=== PATIENT | male | born 1970 | race Caucasian/White ===

== ENCOUNTER 2018-04-22 07:28 | Inpatient (IN) | END 2018-04-23 13:29 | disposition home or self-care (01) | DRG 419 ==

== ENCOUNTER 2018-11-11 15:14 | Emergency (ER) | payer OTHER ==
[~2018-11-11] VITALS: Ht 167.6 cm; Wt 71.7 kg
[~2018-11-11 15:14] MED LIST: CLON0.5T14 PO; GLYC30DR OP; HYDR-3980 PO; HYDR-4011 PO; OLAN5TAB5 PO; PARO-37 PO; RANI150T35 PO; TAMS-14 PO
[2018-11-11 16:00] VITALS: Ht 167.6 cm; Wt 71.7 kg
[2018-11-11] MEDS ORDERED: HYDROCODONE/APAP (5/325) TAB PO STA (17:58)
[2018-11-11] MEDS ORDERED: IBUPROFEN 800 MG TAB PO STA (17:58)
[2018-11-11] MEDS ORDERED: IBUP800T48 PO (18:00)
[2018-11-11] MEDS ORDERED: SULF1TAB31 PO (18:00)
[2018-11-11] MEDS ORDERED: CEPHALEXIN 500 MG CAP PO ONE (18:00)
[2018-11-11] MEDS ORDERED: DIPHTH/TET/ACEL PERTUSS (ADULT) 0.5 ML VIAL IM* ONE (18:00)
[2018-11-11] MEDS ORDERED: TRIMETHOPRIM/SULFAMETHOX (DS) TAB PO ONE (18:00)
[2018-11-11] MEDS ORDERED: CEPH-443 PO (18:00)
[2018-11-11] MEDS ORDERED: ACET500C5 PO (18:01)
--- NOTE | 2018-11-11 18:28 | ERD ---
ER Documentation Chief Complaint Chief Complaint Complains of finger pain x 3 days HPI This is a 48-year-old male with a history of IV drug abuse of methamphetamine and presents ED with multiple complaints. Patient's first complaint is right shoulder pain that has been chronic since 2006. Patient had a right shoulder surgery in 2006. Patient states that the pain worsened 4 months ago. Denies any recent fall or injury to account for pain. Patient admits to some painful range of motion. Denies decreased range of motion, tingling, numbness, lack sensation, fever, chills. Last used methamphetamine via IV route 2 weeks ago. Patient is also complaining of pain redness and swelling and purulent drainage along the dorsal left second finger for the past 3 days. Patient states that he used a dirty razor blade to cut open the wound and purulent drainage was expressed. Denies tingling, numbness, lack sensation of the left finger ROS All systems reviewed and are negative except as per history of present illness. Medications Home Meds Active Scripts Acetaminophen* (Tylophen*) 500 Mg Capsule, 2 CAP PO Q8H PRN for PAIN AND OR ELEVATED TEMP, #20 CAP Prov:LEWIS LOPEZ PA-C 11/11/18 Ibuprofen* (Motrin*) 800 Mg Tab, 800 MG PO Q6, #30 TAB Prov:LEWIS LOPEZ PA-C 11/11/18 Cephalexin* (Keflex*) 500 Mg Capsule, 500 MG PO QID for 10 Days, CAP Prov:LEWIS LOPEZ PA-C 11/11/18 Sulfamethoxazole/Trimethoprim* (Bactrim Ds* Tablet) 1 Each Tablet, 1 TAB PO BID, #14 TAB Prov:LEWIS LOPEZ PA-C 11/11/18 Glycerin/Propylene Glycol (Moisture Eyes Drops) 30 Ml Drops, 2 DRP OP QID for 3 Days, #1 BOTTLE Prov:BRYAN,JENNIFER 07/04/18 Ranitidine Hcl* (Zantac*) 150 Mg Tablet, 150 MG PO BID PRN for EPIGASTRIC PAIN, #30 TAB Prov:RAYRAY CASSIDYSTPRICILAS AKhushboo DO 06/08/18 Hydrocodone/Acetaminophen ([place] 10-325 Tablet) 1 Each Tablet, 1 TAB PO Q6H PRN for PAIN, #20 TAB Prov:RAYRAY CASSIDYCHEL Mcdonough DO 06/08/18 Tamsulosin Hcl* (Flomax*) 0.4 Mg Cap.er.24h, 0.4 MG PO BID, #30 CAP Prov:RAE ONEILL PA-C 06/05/18 Hydrocodone/Acetaminophen ([place] 5-325 Tablet) 1 Each Tablet, 1 TAB PO Q6H PRN for PAIN, #7 TAB Prov:RAE ONEILL PA-C 06/05/18 Clonazepam* (Clonazepam*) 0.5 Mg Tablet, 0.5 MG PO Q8, #30 TAB Prov:JUDITH KENDALL NP 05/23/18 Olanzapine* (Zyprexa*) 5 Mg Tablet, 10 MG PO HS for 30 Days, TAB Prov:JUDITH KENDALL NP 05/23/18 Paroxetine Hcl* (Paroxetine*) 20 Mg Tablet, 20 MG PO HS, #30 TAB Prov:JUDITH KENDALL NP 05/23/18 Allergies Allergies: Coded Allergies: No Known Allergies (Unverified Allergy, Unknown, 05/18/18) PMhx/Soc History of Surgery: Yes (left eye, right shoulder) Anesthesia Reaction: No Hx Neurological Disorder: No Hx Respiratory Disorders: No Hx Cardiac Disorders: No Hx Psychiatric Problems: Yes (Bipolar, Schizophrenia) Hx Miscellaneous Medical Probl: Yes (Hep C) Hx Alcohol Use: Yes (quit last 2011) Hx Substance Use: Yes (Marijuana) Hx Tobacco Use: Yes Smoking Status: Never smoker FmHx Family History: No diabetes Physical Exam Vitals Vital Signs Date Temp Pulse Resp B/P (MAP) Pulse Ox O2 O2 Flow FiO2 Time Delivery Rate 11/11/18 98.4 95 20 141/97 97 16:00 (112) Physical Exam Physical Exam Vitals signs: Reviewed by me. General: Well developed, well nourished, in no acute distress. Patient is awake and alert. Head: Normocephalic, atraumatic. Eyes: Normal conjunctiva, Pupils PERRLA, EOM intact grossly ENT: Pharynx is clear, Moist mucous membranes, external ears, nose and mouth normal Neck: Supple, no masses, lymphadenopathy or JVD Respiratory: Clear to auscultation bilaterally with no wheezing, rhonchi, rales, no distress Cardiovascular: RRR, no murmurs, rubs, or gallops MSK: No edema, no unilateral swelling, 5/5 strength Upper Extremity -right Skin: No laceration, or evidence of external trauma Compartments: Soft Motor: Full active range of motion shoulder/elbow/wrist/hand Sensation: Intact shoulder/pinky/middle finger/thumb web space Bones: Mild tenderness palpation along right anterior shoulder, nontender humerus/elbow/forearm/wrist/hand Snuffbox: Nontender Joints: No effusion Pulses/Perfusion: 2+ radial, Capillary refill < 2 seconds Upper Extremity - b left Skin: There is swelling, redness and purulent drainage expressed from wound on patient's dorsal second finger, Compartments: Soft Motor: Full active range of motion shoulder/elbow/wrist/hand Sensation: Intact shoulder/pinky/middle finger/thumb web space Bones: Nontender humerus/elbow/forearm/wrist/hand Snuffbox: Nontender Joints: No effusion Pulses/Perfusion: 2+ radial, Capillary refill < 2 seconds Radial ulnar median nerve tested for sensory and motor function with no deficit Neurologic: Alert and oriented, moving all extremities, normal speech, no focal weakness, no cerebellar signs. Normal mentation Skin: warm and dry, No rash Psych: Normal mood Results 24 hrs Current Medications Medications Dose Sig/Stefan Start Time Status Last (Trade) Ordered Route PRN Stop Time Admin Dose Reason Admin Diphtheria/ 0.5 ml ONCE ONCE 11/11/18 DC Tetanus/Acell IM* 18:00 Pertussis 11/11/18 18:01 (Adacel) Ibuprofen 800 mg ONCE STAT 11/11/18 DC (Motrin) PO 17:58 11/11/18 17:59 1 tab ONCE STAT 11/11/18 DC Acetaminophen PO 17:58 / 11/11/18 17:59 Hydrocodone Bitart ([place] (5/325)) 1 tab ONCE ONCE 11/11/18 DC Trimethoprim/ PO 18:00 11/11/18 18:01 Sulfamethoxaz ole (Bactrim (Ds)) Cephalexin 500 mg ONCE ONCE 11/11/18 DC (Keflex) PO 18:00 11/11/18 18:01 Procedures/MDM ER COURSE: The patient was given Keflex, Bactrim, ibuprofen and [place] and tetanus The medication was well tolerated and the patient reports improvement in symptoms. The patient was stable throughout ED course. I kept the patient and/or family informed of laboratory and diagnostic imaging results throughout the emergency room course. The patient was promptly evaluated and a treatment plan was devised based on H&P and other data. This plan was discussed with the patient who agreed and had no further questions or concerns prior to discharge. MEDICAL DECISION MAKING: This is a 48-year-old male with a history of IV drug abuse, hep C, bipolar disorder and schizophrenia presents ED with complaints of chronic right shoulder pain and abscess to left dorsal digit that is been present for the past 3 days. Per patient's kanika REPORT patient has had 12 visits to the emergency department in the past 8 months. Patient Trina lanced the abscess on his left second finger yesterday. Wound care was provided in the emergency department and he was advised to follow-up in 2 days for wound check. Patient was also advised to apply warm compress multiple times throughout the day. Patient was advised to not use drugs. There is no lymphatic streaking. Low suspicion for sepsis, deep space infection, compartment syndrome, cellulitis, neurovascular injury, tendon injury. As for patient's right chronic shoulder pain -history and physical examination other data not consistent with emergent processes including but not limited to fracture, dislocation, tendon rupture, ischemia, neurovascular in jury, compartment syndrome, septic joint, avascular necrosis, osteomyelitis, necrotizing fasciitis, septic joint, septic arthritis, or other emergent conditions. Patient's vitals are stable and pt can be managed with close outpatient follow-up. Advised patient follow-up with primary care in the next 48 hours for wound check. Advised to return to ED with any worsening symptoms. DISPOSITION PLAN: We discussed follow up with the patient's primary care doctor within 24 to 48 hours. Patient counseled regarding my diagnostic impression and care plan. Prior to discharge all questions answered. Pt agrees with treatment plan and understands strict return precautions. Precautionary instructions provided including instructions to return to the ER if not improving or for any worsening or changing symptoms or concerns. SPECIALIST FOLLOW UP RECOMMENDED: None Patient has been advised to follow up with primary care in 1-2 days. Disclaimer: Inadvertent spelling and grammatical errors are likely due to EHR/dictation software use and do not reflect on the overall quality of patient care. Also, please note that the electronic time recorded on this note does not necessarily reflect the actual time of the patient encounter. Blood Pressure Assessment: Patient's blood pressure was elevated (>120/80) but appears stable without evidence of hypertension emergency or urgency. The patient was counseled about the risks of hypertension and urged to pursue outpatient monitoring and therapy within a week with their primary care physic gabriele. Departure Diagnosis: Primary Impression: Left shoulder pain Chronicity: chronic Qualified Codes: M25.512 - Pain in left shoulder; G89.29 - Other chronic pain Additional Impression: Abscess of finger, left Condition: Stable Patient Instructions: Abscess Drainage, Abscess, Antiobiotic Treatment Only, Shoulder Pain (Uncertain Cause) Referrals: [facility] YOU HAVE RECEIVED A MEDICAL SCREENING EXAM AND THE RESULTS INDICATE THAT YOU DO NOT HAVE A CONDITION THAT REQUIRES URGENT TREATMENT IN THE EMERGENCY DEPARTMENT. FURTHER EVALUATION AND TREATMENT OF YOUR CONDITION CAN WAIT UNTIL YOU ARE SEEN IN YOUR DOCTORS OFFICE WITHIN THE NEXT 1-2 DAYS. IT IS YOUR RESPONSIBILITY TO MAKE AN APPOINTMENT FOR FOLOW-UP CARE. IF YOU HAVE A PRIMARY DOCTOR --you should call your primary doctor and schedule an appointment IF YOU DO NOT HAVE A PRIMARY DOCTOR YOU CAN CALL OUR PHYSICIAN REFERRAL HOTLINE AT IF YOU CAN NOT AFFORD TO SEE A PHYSICIAN YOU CAN CHOSE FROM THE FOLLOWING [facility] [address] [facility]. [facility] [address] [facility] [facility] [address] [facility] [facility] [address] [facility]. [facility] [address] [facility]. [facility]. [address] Additional Instructions: Return in 2 days for a wound check. Apply warm compress to finger multiple times throughout the day. Patient advised to return to the ED immediately for new or worsening symptoms. Patient advised to follow up with primary care provider in the next 24-48 hours. Patient verbalized understanding and agrees with treatment plan and course of action. If patient has no primary care they may follow up with one of the [facility] listed on the following page or one of the options listed below [facility] + [address] [address] or [facility] [address] [place] [address] or [facility] [address] [place] [address] LEWIS LOPEZ PA-C Nov 11, 2018 18:28
[2018-11-11 19:01] VITALS: BP 139/90; PULSE 78; RESP 16
== END 2018-11-11 19:02 | disposition home or self-care (01) ==
LOC: FTE 15:14
DX: M25.512 Pain in left shoulder (principal); L02.512 Cutaneous abscess of left hand; Z87.891 Personal history of nicotine dependence
CPT/HCPCS: 90471; 90715; Z7502; Z7610

== ENCOUNTER 2018-11-20 23:27 | Emergency (ER) | payer SELFPAY ==
[~2018-11-20] VITALS: Ht 172.7 cm; Wt 72.8 kg
[~2018-11-20 23:27] MED LIST changes: +ACET500C5 PO; +CEPH-443 PO; +IBUP800T48 PO; +SULF1TAB31 PO
[2018-11-20 23:54] VITALS: BP 115/68; PULSE 90; RESP 16; Ht 172.7 cm; Wt 72.8 kg
== END 2018-11-21 06:48 | disposition left against medical advice (07) ==
LOC: FTE 23:27
DX: Z53.21 Procedure and treatment not carried out due to patient leaving prior to being seen by health care provider (principal)

== ENCOUNTER 2019-01-30 09:39 | Inpatient (IN) | payer OTHER ==
[~2019-01-30] VITALS: Ht 172.7 cm; Wt 72.7 kg
[2019-01-30] MEDS ORDERED: ONDANSETRON INJ 8 MG in DEXTROSE 5% 50 ML IV STA (12:18)
[2019-01-30] MEDS ORDERED: morphine 4 MG/ML VIAL IV STA (12:18)
[2019-01-30] MEDS ORDERED: SOD CHLORIDE 0.9% 1,000 ML IV STA (12:18)
--- NOTE | 2019-01-30 12:50 | ERD ---
ER Documentation Chief Complaint Chief Complaint LLQ ABD PAIN X1 DAY, NO N/V HPI 48-year-old male with prior history of cholecystectomy presents to the emergency room with 1 day of left lower quadrant abdominal pain that is described as cramping with associated nausea but no vomiting. The symptoms are moderate. No bowel movement for several days. He denies any fevers but does note some chills. No recent travel, sick contacts, antibiotics. He denies any scrotal pain or testicular pain. ROS All systems reviewed and are negative except as per history of present illness. Medications Home Meds Active Scripts Acetaminophen* (Tylophen*) 500 Mg Capsule, 2 CAP PO Q8H PRN for PAIN AND OR ELEVATED TEMP, #20 CAP Prov:LEWIS LOPEZ PA-C 11/11/18 Ibuprofen* (Motrin*) 800 Mg Tab, 800 MG PO Q6, #30 TAB Prov:LEWIS LOPEZ PA-C 11/11/18 Reported Medications Paroxetine Hcl* (Paxil*) 20 Mg Tablet, 20 MG PO HS, TAB 01/30/19 Olanzapine (Zyprexa Zydis) 20 Mg Tab.rapdis, 20 MG PO QHS 01/30/19 Discontinued Scripts Cephalexin* (Keflex*) 500 Mg Capsule, 500 MG PO QID for 10 Days, CAP Prov:LEWIS LOPEZ PA-C 11/11/18 Sulfamethoxazole/Trimethoprim* (Bactrim Ds* Tablet) 1 Each Tablet, 1 TAB PO BID, #14 TAB Prov:LEWIS LOPEZ PA-C 11/11/18 Glycerin/Propylene Glycol (Moisture Eyes Drops) 30 Ml Drops, 2 DRP OP QID for 3 Days, #1 BOTTLE Prov:BRYANJENNIFER 07/04/18 Ranitidine Hcl* (Zantac*) 150 Mg Tablet, 150 MG PO BID PRN for EPIGASTRIC PAIN, #30 TAB Prov:RAYRAY CASSIDYSTPRICILAS A. DO 06/08/18 Hydrocodone/Acetaminophen ([place] 10-325 Tablet) 1 Each Tablet, 1 TAB PO Q6H PRN for PAIN, #20 TAB Prov:LEKKOS,APOSTOLOS A. DO 06/08/18 Tamsulosin Hcl* (Flomax*) 0.4 Mg Cap.er.24h, 0.4 MG PO BID, #30 CAP Prov:RAE ONEILL PA-C 06/05/18 Hydrocodone/Acetaminophen ([place] 5-325 Tablet) 1 Each Tablet, 1 TAB PO Q6H PRN for PAIN, #7 TAB Prov:RAE ONEILL PA-C 06/05/18 Clonazepam* (Clonazepam*) 0.5 Mg Tablet, 0.5 MG PO Q8, #30 TAB Prov:JUDITH KENDALL NP 05/23/18 Olanzapine* (Zyprexa*) 5 Mg Tablet, 10 MG PO HS for 30 Days, TAB Prov:JUDITH KENDALL NP 05/23/18 Paroxetine Hcl* (Paroxetine*) 20 Mg Tablet, 20 MG PO HS, #30 TAB Prov:JUDITH KENDALL NP 05/23/18 Allergies Allergies: Coded Allergies: No Known Allergies (Unverified Allergy, Unknown, 01/30/19) PMhx/Soc History of Surgery: Yes (left eye, right shoulder) Anesthesia Reaction: No Hx Neurological Disorder: No Hx Respiratory Disorders: No Hx Cardiac Disorders: No Hx Psychiatric Problems: Yes (Bipolar, Schizophrenia) Hx Miscellaneous Medical Probl: Yes (Hep C) Hx Alcohol Use: Yes (quit last 2011) Hx Substance Use: Yes (Marijuana) Hx Tobacco Use: Yes FmHx Family History: No diabetes Physical Exam Vitals Vital Signs Date Temp Pulse Resp B/P (MAP) Pulse Ox O2 O2 Flow FiO2 Time Delivery Rate 01/30/19 99 17 132/80 100 14:12 (97) 01/30/19 98.5 120 17 128/79 99 09:44 (95) Physical Exam General: Well developed, well nourished, no acute distress Head: Normocephalic, atraumatic. Eyes: Pupils equally reactive, EOM intact ENT: Moist mucous membranes Neck: Supple, no lymphadenopathy Respiratory: Lungs clear bilaterally, no distress Cardiovascular: RRR, no murmurs, rubs, or gallops Abdominal: Soft, mild focal tenderness to left lower quadrant without rebound or guarding, no pulsatile mass, no tenderness to McBurney's point, no hernia noted. : Deferred MSK: No edema, no unilateral swelling, 5/5 strength Neurologic: Alert and oriented, moving all extremities, normal speech, no focal weakness, no cerebellar signs Skin: No rash Psych: Normal mood Result Diagram: 01/30/19 1251 01/30/19 1251 Results 24 hrs Laboratory Tests Test 01/30/19 12:51 White Blood Count 16.2 10^3/ul Red Blood Count 4.89 10^6/ul Hemoglobin 14.4 g/dl Hematocrit 42.0 % Mean Corpuscular Volume 85.9 fl Mean Corpuscular Hemoglobin 29.4 pg Mean Corpuscular Hemoglobin Concent 34.3 g/dl Red Cell Distribution Width 13.2 % Platelet Count 207 10^3/UL Mean Platelet Volume 9.3 fl Immature Granulocytes % 0.400 % Neutrophils % 80.0 % Lymphocytes % 7.8 % Monocytes % 10.5 % Eosinophils % 0.9 % Basophils % 0.4 % Nucleated Red Blood Cells % 0.0 /100WBC Immature Granulocytes # 0.070 10^3/ul Neutrophils # 12.9 10^3/ul Lymphocytes # 1.3 10^3/ul Monocytes # 1.7 10^3/ul Eosinophils # 0.2 10^3/ul Basophils # 0.1 10^3/ul Nucleated Red Blood Cells # 0.0 10^3/ul Sodium Level 137 mmol/L Potassium Level 4.1 mmol/L Chloride Level 104 mmol/L Carbon Dioxide Level 23 mmol/L Anion Gap 10 Blood Urea Nitrogen 16 mg/dl Creatinine 0.69 mg/dl Est Glomerular Filtrat Rate mL/min > 60 mL/min Glucose Level 127 mg/dl Calcium Level 9.4 mg/dl Total Bilirubin 0.7 mg/dl Direct Bilirubin 0.00 mg/dl Indirect Bilirubin 0.7 mg/dl Aspartate Amino Transf (AST/SGOT) 13 IU/L Alanine Aminotransferase (ALT/SGPT) 9 IU/L Alkaline Phosphatase 85 IU/L Total Protein 8.0 g/dl Albumin 4.2 g/dl Globulin 3.80 g/dl Albumin/Globulin Ratio 1.10 Lipase 56 U/L Current Medications Medications Dose Sig/Stefan Start Time Status Last (Trade) Ordered Route PRN Stop Time Admin Dose Reason Admin Sodium 1,000 ml @ Q1H STAT 01/30/19 DC 01/30/19 Chloride 1,000 mls/hr IV 12:18 12:50 01/30/19 13:17 Morphine 4 mg ONCE STAT 01/30/19 DC 01/30/19 Sulfate IV 12:18 12:52 (morphine) 5/30/19 12:21 Ondansetron 54 ml @ ONCE STAT 01/30/19 DC 01/30/19 HCl 8 200 mls/hr IV 12:18 12:50 mg/Dextrose 01/30/19 12:34 IV Flush 10 ml STK-MED 01/30/19 DC 01/30/19 (NS 10 ml) ONCE .ROUTE 13:49 14:02 01/30/19 13:50 Sodium 100 ml @ ud STK-MED 01/30/19 DC 01/30/19 Chloride ONCE .ROUTE 13:49 14:02 01/30/19 13:50 Iohexol 150 ml STK-MED 01/30/19 DC 01/30/19 (Omnipaque ONCE .ROUTE 13:49 14:02 300mg/ ml) 01/30/19 13:50 Piperacillin 100 ml @ ONCE ONCE 01/30/19 DC 01/30/19 Sod/ 200 mls/hr IVPB 15:00 15:40 Tazobactam 01/30/19 15:29 Sod Ondansetron 4 mg BRIDGE ORDER 01/30/19 HCl (Zofran PRN IV 16:00 Inj) NAUSEA/VOMITI 01/31/19 15:59 NG 650 mg ER BRIDGE 01/30/19 Acetaminophen PRN PO 16:00 (Tylenol .MILD PAIN 01/31/19 15:59 Tab) 1-3 OR TEMP 1 mg ONCE STAT 01/30/19 DC 01/30/19 Hydromorphone IV 15:47 15:54 HCl 01/30/19 15:48 (Dilaudid) Ondansetron 4 mg ONCE STAT 01/30/19 DC 01/30/19 HCl (Zofran IV 15:47 15:54 Inj) 01/30/19 15:48 Procedures/MDM EKG, MONITORS, & DIAGNOSTIC IMAGING: CT abdomen and pelvis: IMPRESSION: 1. ACUTE DIVERTICULITIS INVOLVING THE MID TO DISTAL SIGMOID COLON. THERE IS PERFORATION, WITH ADJACENT FOCI OF FREE AIR WELL A MODERATE AMOUNT OF FREE AIR, WITHIN THE LEFT LOWER QUADRANT, EXTENDING SUPERIORLY ANTERIOR THE RETROPERITONEUM UP TO THE LEVEL OF THE STOMACH. THERE IS ALSO A 2.9 CM ILL- DEFINED AREA OF FLUID AND AIR MEDIAL TO THE LEFT PSOAS MUSCLE, WORRISOME FOR EARLY DEVELOPING ABSCESS. 2. No evidence of bowel obstruction. Fluid-filled loops of large bowel suggestive of watery diarrhea. The appendix is within normal limits. 3. 1.5 cm right-sided renal cyst. Call report was made with Dr. Olmos @ 2:35 PM on 01/30/19 LAB INTERPRETATION: I reviewed the laboratory testing and it shows Leukocytosis MEDICAL DECISION MAKING: Patient's left lower quadrant pain is a broad differential but does include acute diverticulitis. Given localization CT would be appropriate. Consider bowel obstruction versus constipation. Patient will benefit from symptom control and diagnostic imaging to rule out more serious etiology. Simple constipation could be possible as well. ER COURSE: * Patient given IV fluids and pain control medication * The patient CT is reported to be consistent with perforation. The patient still has only localized peritonitis without evidence of diffuse peritonitis. A phone call was placed immediately to Dr. Tinoco. He has been notified. Initially he had requested CT imaging with IV and rectal contrast but has discontinued that request. He will evaluate the patient for possible operative intervention. Patient was given repeat dose of pain medication. Zosyn was given. * Patient remains hemodynamically stable CONSULTATION: General surgeon: Dr. Tinoco DISPOSITION PLAN: Accepting care team and consultations: I discussed the current laboratory data, diagnostic imaging and emergency care provided. Admitting team: Dr. Gee Admitting team indication: Insurance directed Departure Diagnosis: Primary Impression: Acute diverticulitis Additional Impression: Diverticulitis of colon with perforation Diverticulitis bleeding: without bleeding Qualified Codes: K57.20 - Diverticulitis of large intestine with perforation and abscess without bleeding Condition: Stable FELIX OLMOS MD January 30, 2019 12:50
[2019-01-30] MEDS ORDERED: OLAN20TA5 PO (12:57)
[2019-01-30] MEDS ORDERED: PARO-2 PO (12:58)
[2019-01-30] MEDS ORDERED: SOD CHLORIDE 0.9% 100 ML ONE (13:49)
[2019-01-30] MEDS ORDERED: IOHEXOL 300MG/ML 150 ML BTL ONE (13:49)
[2019-01-30] MEDS ORDERED: PIPER-TAZO 3.375 GM IV (PMX) 100 ML IVPB ONE (15:00)
[2019-01-30] MEDS ORDERED: HYDROmorphONE 1 MG/ML SYG IV STA (15:47)
[2019-01-30] MEDS ORDERED: ONDANSETRON 4 MG INJ IV STA (15:47)
[2019-01-30] MEDS ORDERED: ACETAMINOPHEN 325 MG TAB PO PRN (16:00)
[2019-01-30] MEDS ORDERED: ONDANSETRON 4 MG INJ IV PRN ×2 (16:00→18:30)
--- NOTE | 2019-01-30 18:21 | HP ---
Date/Time of Note Date/Time of Note DATE: 01/30/19 TIME: 18:21 Assessment/Plan VTE Prophylaxis Pharmacological prophylaxis: NA/contraindicated Pharm contraindication: low risk/ambulating, surgical contra Lines/Catheters [facility]from [facility] Saline Lock Assessment/Plan Hospital Course 48-year-old male with comorbidities including hepatitis C, polysubstance abuse, and bipolar disorder who presented to the emergency room with chief complaint of abdominal pain with CT evidence of perforated diverticulitis and underlying sepsis, who will be admitted to inpatient setting for further treatment and evaluation. 1. Sepsis with leukocytosis, and tachycardia present on admission. -Most probably secondary to underlying intra-abdominal process. -Continue IV fluids. -Send pancultures. -Monitor for any early signs of septic shock. 2. Acute diverticulitis with perforation. -Continue n.p.o. -Continue IV fluids. -Start empiric antimicrobials including coverage for anaerobes (carbapenem) and enterococci (vancomycin). -Surgical consult has been obtained. 3. Nicotine use. -Will start the patient on nicotine patch. 4. Bipolar disorder with psychotic component. -Will hold oral antipsychotics until the patient is able to take oral intake. 5. History of methamphetamine abuse. -Obtain urine drug screen. Plan: The patient will be admitted to inpatient medical surgical floor. The patient will be kept n.p.o. except for medications.. The patient will be started on DVT prophylaxis. The patient will remain a full code. Activities will be as tolerated. The rest of the patient's management will be based on the clinical course, inputs from consultants, and the results of diagnostic studies. Based on the patient's clinical presentation, he most probably requires at least 2 midnights' stay for further management and evaluation of his clinical presentation. The patient was seen in collaboration with Dr. Gee. Result Diagram: 01/30/19 1251 01/30/19 1251 Results 24hrs Laboratory Tests Test 01/30/19 12:51 White Blood Count 16.2 #H Red Blood Count 4.89 Hemoglobin 14.4 Hematocrit 42.0 Mean Corpuscular Volume 85.9 Mean Corpuscular Hemoglobin 29.4 Mean Corpuscular Hemoglobin Concent 34.3 Red Cell Distribution Width 13.2 Platelet Count 207 # Mean Platelet Volume 9.3 Immature Granulocytes % 0.400 Neutrophils % 80.0 H Lymphocytes % 7.8 L Monocytes % 10.5 Eosinophils % 0.9 Basophils % 0.4 Nucleated Red Blood Cells % 0.0 Immature Granulocytes # 0.070 H Neutrophils # 12.9 H Lymphocytes # 1.3 Monocytes # 1.7 H Eosinophils # 0.2 Basophils # 0.1 Nucleated Red Blood Cells # 0.0 Sodium Level 137 Potassium Level 4.1 Chloride Level 104 Carbon Dioxide Level 23 Anion Gap 10 Blood Urea Nitrogen 16 Creatinine 0.69 Est Glomerular Filtrat Rate mL/min > 60 Glucose Level 127 Calcium Level 9.4 Total Bilirubin 0.7 Direct Bilirubin 0.00 Indirect Bilirubin 0.7 Aspartate Amino Transf (AST/SGOT) 13 L Alanine Aminotransferase (ALT/SGPT) 9 L Alkaline Phosphatase 85 Total Protein 8.0 Albumin 4.2 Globulin 3.80 H Albumin/Globulin Ratio 1.10 Lipase 56 HPI/ROS Admit Date/Time Admit Date/Time Hx of Present Illness Reason for admission: Abdominal pain. CT evidence of perforated diverticulitis. Consultants 1. Godwin Tinoco MD, General Surgery. This is a 48-year-old male with past medical history of polysubstance abuse including IV methamphetamine abuse, bipolar disorder with psychotic component, and hepatitis C who came to the emergency room with a chief complaint of abdominal pain. The patient verbalized that the abdominal pain started on 01/29/2019. The patient was complaining of chills. The patient denied any fevers. He denied any nausea/vomiting. He denied any diarrhea. He denied any urinary urgency or frequency. In the emergency room, the patient was noticed to have leukocytosis (WBC 16.2). The patient was afebrile. The patient was tachycardic. The patient underwent a CT scan of the abdomen and pelvis that was showing acute diverticulitis involving the mid to distal sigmoid colon with perforation with adjacent foci of free air as well as more prominent amount of free air within the left lower quadrant extending superiorly anterior to the retroperitoneum up to the level of the stomach. The CT also revealed ill-defined 2.9 cm fluid and air medial to the left psoas muscle worrisome for early developing abscess. The patient was treated with IV Zosyn along with IV analgesics in the emergency room. General surgery consult was called by the ER physician. ROS Constitutional: chills Eyes: no complaints ENT: no complaints Respiratory: no complaints Cardiovascular: no complaints Gastrointestinal: pain Genitourinary: no complaints Musculoskeletal: no complaints Skin: no complaints Endocrine: no complaints Lymphatic: no complaints Psychological: anxiety Immunologic: no complaints PMH/Family/Social Past Medical History 1. Hepatitis C. 2. Substance abuse. 3. Bipolar disorder with psychotic component. 4. Homelessness. Medications Current Medications Ondansetron HCl (Zofran Inj) 4 mg BRIDGE ORDER PRN IV NAUSEA/VOMITING; Start 01/30/19 at 16:00; Stop 01/31/19 at 15:59 Acetaminophen (Tylenol Tab) 650 mg ER BRIDGE PRN PO .MILD PAIN 1-3 OR TEMP; Start 01/30/19 at 16:00; Stop 01/31/19 at 15:59 Coded Allergies: No Known Allergies (Unverified Allergy, Unknown, 01/30/19) Past Surgical History 1. Left eye surgery. 2. Right shoulder surgery. 3. Cholecystectomy. Family History Significant Family History: no pertinent family hx Social History Smoking Status: Current every day smoker Drug Use: marijuana, other (Prior IV meth user) Exam/Review of Systems Vital Signs Vitals Vital Signs Date Temp Pulse Resp B/P (MAP) Pulse Ox O2 O2 Flow FiO2 Time Delivery Rate 01/30/19 104 22 112/84 95 Room Air 17:30 (93) 01/30/19 98.5 09:44 Exam Exam General: Adequately build 48 year-old male lying in bed in no apparent distress, looks disheveled. HEENT: Normocephalic, atraumatic. Eyes: Anicteric sclerae, conjunctivae clear. ENT: Nasal septum midline, oral mucosa is dry moist. Neck supple, no JVD noticed. Respiratory: Bilaterally clear breath sounds. No use of accessory muscles of respiration. No adventitious breath sounds. Cardiovascular: S1, S2 heard. Regular rate and rhythm. Abdomen: Soft and nondistended. LLQ tenderness. Bowel sounds positive in all 4 quadrants. Genitourinary: Deferred. Extremities: No cyanosis, no clubbing, no edema. Peripheral pulses palpable. Neurologic: Cranial nerves II through XII grossly intact. The patient is awake, alert, and oriented. Skin: Normal skin turgor. No skin rashes. Additional Comments CT Abdomen and Pelvis IMPRESSION: 1. ACUTE DIVERTICULITIS INVOLVING THE MID TO DISTAL SIGMOID COLON. THERE IS PERFORATION, WITH ADJACENT FOCI OF FREE AIR WELL A MODERATE AMOUNT OF FREE AIR, WITHIN THE LEFT LOWER QUADRANT, EXTENDING SUPERIORLY ANTERIOR THE RETROPERITONEUM UP TO THE LEVEL OF THE STOMACH. THERE IS ALSO A 2.9 CM ILL- DEFINED AREA OF FLUID AND AIR MEDIAL TO THE LEFT PSOAS MUSCLE, WORRISOME FOR EARLY DEVELOPING ABSCESS. 2. No evidence of bowel obstruction. Fluid-filled loops of large bowel suggestive of watery diarrhea. The appendix is within normal limits. 3. 1.5 cm right-sided renal cyst. JUDITH KENDALL NP January 30, 2019 18:21
[2019-01-30] MEDS ORDERED: NACL 0.9% 3 ML SYG IV SCH (18:30)
[2019-01-30] MEDS ORDERED: VANCOMYCIN IV PER PHARMACY XX SCH (18:30)
[2019-01-30] MEDS: NICOTINE (14 MG/24 HR) PATCH TRANSDERM SCH (18:30)
[2019-01-30] MEDS ORDERED: VANCOMYCIN HCL 1.5 GM in SOD CHLORIDE 0.9% 250 ML IVPB ONE (19:30)
--- NOTE | 2019-01-30 20:02 | CONS ---
Assessment/Plan Assessment/Plan Assessment/Plan (Daily) Acute diverticulitis with mesenteric perforation extending into the retroperitoneum Nonacute abdomen and hemodynamically stable We will treat nonsurgically at this point. IV fluids, antibiotics, n.p.o. If worsens or deteriorates, may need urgent surgery We will likely reimage in few days to rule out abscess. Consultation Date/Type/Reason Admit Date/Time Date/Time of Note DATE: 01/30/19 TIME: 19:58 Hx of Present Illness The patient is an 40-year-old male with acute onset of lower abdominal pain beginning yesterday. He felt like he needed to the bathroom but could not. He describes having chills. No prior episodes. No bowel movement for a few days. The pain worsened and he presented to the ER today. Denies nausea or emesis. History of polysubstance abuse. His work-up in the ER was consistent with acute diverticulitis and microperforation. I was called for consultation. 14 point review of systems was performed. Pertinent negatives and positive per HPI. Past Medical History Medical History: other (Bipolar, hepatitis C) Home Meds Active Scripts Acetaminophen* (Tylophen*) 500 Mg Capsule, 2 CAP PO Q8H PRN for PAIN AND OR ELEVATED TEMP, #20 CAP Prov:LEWIS LOPEZ PA-C 11/11/18 Ibuprofen* (Motrin*) 800 Mg Tab, 800 MG PO Q6, #30 TAB Prov:LEWIS LOPEZ PA-C 11/11/18 Reported Medications Paroxetine Hcl* (Paxil*) 20 Mg Tablet, 20 MG PO HS, TAB 01/30/19 Olanzapine (Zyprexa Zydis) 20 Mg Tab.rapdis, 20 MG PO QHS 01/30/19 Discontinued Scripts Cephalexin* (Keflex*) 500 Mg Capsule, 500 MG PO QID for 10 Days, CAP Prov:LEWIS LOPEZ PA-C 11/11/18 Sulfamethoxazole/Trimethoprim* (Bactrim Ds* Tablet) 1 Each Tablet, 1 TAB PO BID, #14 TAB Prov:LEWIS LOPEZ PA-C 11/11/18 Glycerin/Propylene Glycol (Moisture Eyes Drops) 30 Ml Drops, 2 DRP OP QID for 3 Days, #1 BOTTLE Prov:BRYAN,JENNIFER 07/04/18 Ranitidine Hcl* (Zantac*) 150 Mg Tablet, 150 MG PO BID PRN for EPIGASTRIC PAIN, #30 TAB Prov:RAYRAY CASSIDYSTOLOS A. DO 06/08/18 Hydrocodone/Acetaminophen ([place] 10-325 Tablet) 1 Each Tablet, 1 TAB PO Q6H PRN for PAIN, #20 TAB Prov:LEKKOS,APOSTOLOS A. DO 06/08/18 Tamsulosin Hcl* (Flomax*) 0.4 Mg Cap.er.24h, 0.4 MG PO BID, #30 CAP Prov:RAE ONEILL PA-C 06/05/18 Hydrocodone/Acetaminophen ([place] 5-325 Tablet) 1 Each Tablet, 1 TAB PO Q6H PRN for PAIN, #7 TAB Prov:RAE ONEILL PA-C 06/05/18 Clonazepam* (Clonazepam*) 0.5 Mg Tablet, 0.5 MG PO Q8, #30 TAB Prov:JUDITH KENDALL NP 05/23/18 Olanzapine* (Zyprexa*) 5 Mg Tablet, 10 MG PO HS for 30 Days, TAB Prov:JUDITH KENDALL NP 05/23/18 Paroxetine Hcl* (Paroxetine*) 20 Mg Tablet, 20 MG PO HS, #30 TAB Prov:JUDITH KENDALL NP 05/23/18 Medications Current Medications Ondansetron HCl (Zofran Inj) 4 mg BRIDGE ORDER PRN IV NAUSEA/VOMITING; Start at 16:00; Stop 01/31/19 at 15:59 Acetaminophen (Tylenol Tab) 650 mg ER BRIDGE PRN PO .MILD PAIN 1-3 OR TEMP; Start 01/30/19 at 16:00; Stop 01/31/19 at 15:59 Sodium Chloride 1,000 ml @ 125 mls/hr Q8H IV ; Start 01/30/19 at 18:18 IV Flush (NS 3 ml) 3 ml PER PROTOCOL IV ; Start 01/30/19 at 18:30 Ondansetron HCl (Zofran Inj) 4 mg Q6H PRN IV NAUSEA/VOMITING; Start 01/30/19 at 18:30 Morphine Sulfate (morphine) 2 mg Q4H PRN IV .SEVERE PAIN 7-10; Start 01/30/19 at 18:30 Meropenem/Sodium Chloride 50 ml @ 100 mls/hr Q8 IVPB ; Start 01/30/19 at 22:00 Nicotine (Nicoderm 14 Mg/ 24hr) 1 patch DAILY TRANSDERM ; Start 01/30/19 at 18:30 Vancomycin HCl (Vanco Iv Per Pharmacy) VANCOMYCIN PER PHARMACY PER PROTOCOL XX ; Start 01/30/19 at 18:30; Status UNV Vancomycin HCl 1.5 gm/Sodium Chloride 250 ml @ 83.333 mls/ hr LOADING DOSE ONCE IVPB ; Start 01/30/19 at 19:30; Stop 01/30/19 at 22:29 Allergies: Coded Allergies: No Known Allergies (Unverified Allergy, Unknown, 01/30/19) Past Surgical History Past Surgical Hx: no surgical history Social History Smoking Status: Current every day smoker Drug Use: marijuana, other (Prior IV meth user) Exam/Review of Systems Exam Vitals Vital Signs Date Temp Pulse Resp B/P (MAP) Pulse Ox O2 O2 Flow FiO2 Time Delivery Rate 01/30/19 104 22 112/84 95 Room Air 17:30 (93) 01/30/19 98.5 09:44 Constitutional: alert, oriented, well developed Psych: no complaints, nl mood/affect Head: normocephalic, atraumatic Eyes: nl conjunctiva ENMT: nl external ears & nose Neck: supple Respiratory: clear to auscultation, normal air movement Cardiovascular: regular rate and rhythm Gastrointestinal: other (Soft, mildly distended, significant left lower quadrant tenderness, no peritoneal findings) Results Result Diagram: 01/30/19 1251 01/30/19 1251 Results 24hrs Laboratory Tests Test 01/30/19 12:51 White Blood Count 16.2 #H Red Blood Count 4.89 Hemoglobin 14.4 Hematocrit 42.0 Mean Corpuscular Volume 85.9 Mean Corpuscular Hemoglobin 29.4 Mean Corpuscular Hemoglobin Concent 34.3 Red Cell Distribution Width 13.2 Platelet Count 207 # Mean Platelet Volume 9.3 Immature Granulocytes % 0.400 Neutrophils % 80.0 H Lymphocytes % 7.8 L Monocytes % 10.5 Eosinophils % 0.9 Basophils % 0.4 Nucleated Red Blood Cells % 0.0 Immature Granulocytes # 0.070 H Neutrophils # 12.9 H Lymphocytes # 1.3 Monocytes # 1.7 H Eosinophils # 0.2 Basophils # 0.1 Nucleated Red Blood Cells # 0.0 Sodium Level 137 Potassium Level 4.1 Chloride Level 104 Carbon Dioxide Level 23 Anion Gap 10 Blood Urea Nitrogen 16 Creatinine 0.69 Est Glomerular Filtrat Rate mL/min > 60 Glucose Level 127 Hemoglobin A1c 5.5 Calcium Level 9.4 Total Bilirubin 0.7 Direct Bilirubin 0.00 Indirect Bilirubin 0.7 Aspartate Amino Transf (AST/SGOT) 13 L Alanine Aminotransferase (ALT/SGPT) 9 L Alkaline Phosphatase 85 Total Protein 8.0 Albumin 4.2 Globulin 3.80 H Albumin/Globulin Ratio 1.10 Lipase 56 Imaging Imaging DIAGNOSTIC IMAGING REPORT Patient: MOLLY WILLIAM : 1970 Age: 48 Sex: M MR #: [id number] DOS: 01/30/19 1218 Ordering MD: FELIX ESCALANTE MD Location: E/R Room/Bed: PROCEDURE: CT ABDOMEN AND PELVIS WITH IV CONTRAST. CLINICAL INDICATION: Abdominal pain TECHNIQUE: CT scan of the abdomen and pelvis with contrast was performed on a multidetector high-resolution CT scanner following the use of IV contrast. 100 cc Omnipaque-300 was administered. Coronal and sagittal reformatted images were obtained from the axial source images. Images were reviewed on a high-resolution PACS workstation. The total exam CTDI equals 9.2 mGy and the total exam DLP equals 510.5 mGy-cm. One or more of the following dose reduction techniques were used: Automated exposure control. Adjustment of the mA and/or kV according to patient size. Use of iterative reconstruction technique. DICOM images are available. COMPARISON: None FINDINGS: CT abdomen: The lung bases are clear. The heart size is within normal limits. There is no significant pericardial effusion. Hepatic morphology is within normal limits. No gross contour deforming masses. The gallbladder is not visualized. Status post cholecystectomy. No evidence of intrahepatic or extrahepatic biliary dilatation. The spleen and pancreas are within normal limits. Both adrenal glands are within normal limits. Both kidneys are in anatomic position. No evidence of obstruction or hydron ephrosis. Right-sided renal cyst measuring 1.5 cm noted. The visualized GI tract demonstrates several scattered foci of intra-abdominal free air. No gross evidence of bowel obstruction. Fluid-filled loops of large bowel are identified suggestive of watery diarrhea. The appendix is within normal limits. The aorta is unremarkable. Free air is noted within the left lower quadrant, extending superiorly, anterior to the retroperitoneum. CT pelvis: The bladder demonstrates a of the werner. Prostate is enlarged. The rectosigmoid colon demonstrates inflammation of the mid to distal sigmoid colon. Area of focal inflammation with surrounding inflammatory changes and free air, consistent with perforated diverticulitis. There is a 2.9 cm ill-defined area of fluid and air, noted medial to the left psoas muscle, concerning for early developing abscess. Numerous foci of free air is noted within the left lower quadrant, extending superiorly, anterior to the left retroperitoneum. The visualized osseous structures appears to be within normal limits. IMPRESSION: 1. ACUTE DIVERTICULITIS INVOLVING THE MID TO DISTAL SIGMOID COLON. THERE IS PERFORATION, WITH ADJACENT FOCI OF FREE AIR WELL A MODERATE AMOUNT OF FREE AIR, WITHIN THE LEFT LOWER QUADRANT, EXTENDING SUPERIORLY ANTERIOR THE RETROPERITONEUM UP TO THE LEVEL OF THE STOMACH. THERE IS ALSO A 2.9 CM ILL- DEFINED AREA OF FLUID AND AIR MEDIAL TO THE LEFT PSOAS MUSCLE, WORRISOME FOR EARLY DEVELOPING ABSCESS. 2. No evidence of bowel obstruction. Fluid-filled loops of large bowel suggestive of watery diarrhea. The appendix is within normal limits. Medications Medication Current Medications Ondansetron HCl (Zofran Inj) 4 mg BRIDGE ORDER PRN IV NAUSEA/VOMITING; Start at 16:00; Stop 01/31/19 at 15:59 Acetaminophen (Tylenol Tab) 650 mg ER BRIDGE PRN PO .MILD PAIN 1-3 OR TEMP; Start 01/30/19 at 16:00; Stop 01/31/19 at 15:59 Sodium Chloride 1,000 ml @ 125 mls/hr Q8H IV ; Start 01/30/19 at 18:18 IV Flush (NS 3 ml) 3 ml PER PROTOCOL IV ; Start 01/30/19 at 18:30 Ondansetron HCl (Zofran Inj) 4 mg Q6H PRN IV NAUSEA/VOMITING; Start 01/30/19 at 18:30 Morphine Sulfate (morphine) 2 mg Q4H PRN IV .SEVERE PAIN 7-10; Start 01/30/19 at 18:30 Meropenem/Sodium Chloride 50 ml @ 100 mls/hr Q8 IVPB ; Start 01/30/19 at 22:00 Nicotine (Nicoderm 14 Mg/ 24hr) 1 patch DAILY TRANSDERM ; Start 01/30/19 at 18:30 Vancomycin HCl (Vanco Iv Per Pharmacy) VANCOMYCIN PER PHARMACY PER PROTOCOL XX ; Start 01/30/19 at 18:30; Status UNV Vancomycin HCl 1.5 gm/Sodium Chloride 250 ml @ 83.333 mls/ hr LOADING DOSE ONCE IVPB ; Start 01/30/19 at 19:30; Stop 01/30/19 at 22:29 OZ BALL MD January 30, 2019 20:02
[2019-01-30] MEDS: SOD CHLORIDE 0.9% 1,000 ML IV SCH (20:21)
[2019-01-30] MEDS: morphine 2 MG INJ IV PRN (20:21)
[2019-01-30] MEDS: HYDROmorphONE 0.5 MG/0.5 ML SYG IV PRN (22:23)
[2019-01-30 23:00] VITALS: BP 123/80; PULSE 90; RESP 18
[2019-01-31] VITALS: Ht 172.7 cm; Wt 72.7 kg
[2019-01-31] MEDS: MEROPENEM 1 GM/50ML(PMX) 50 ML IVPB SCH ×4 (01:06→22:53)
[2019-01-31 02:00] VITALS: BP 121/75; PULSE 94; RESP 18
[2019-01-31] MEDS: SOD CHLORIDE 0.9% 1,000 ML IV SCH ×3 (02:18→17:47)
[2019-01-31] MEDS: morphine 2 MG INJ IV PRN ×2 (03:11→07:32)
[2019-01-31 08:00] VITALS: BP 114/72; PULSE 88; RESP 20
[2019-01-31] MEDS: NICOTINE (14 MG/24 HR) PATCH TRANSDERM SCH (09:00)
[2019-01-31] MEDS: VANCOMYCIN HCL 1.25 GM in SOD CHLORIDE 0.9% 250 ML IVPB SCH ×2 (09:07→20:29)
[2019-01-31] MEDS: HYDROmorphONE 0.5 MG/0.5 ML SYG IV PRN ×3 (11:37→20:44)
[2019-01-31 14:00] VITALS: BP 120/72; PULSE 96; RESP 18
--- NOTE | 2019-01-31 14:08 | PN ---
Date/Time of Note Date/Time of Note DATE: 01/31/19 TIME: 14:07 Assessment/Plan VTE Prophylaxis Risk score (from Ns)>0 risk: 2 SCD applied (from Ns): Yes Pharmacological prophylaxis: NA/contraindicated Pharm contraindication: low risk/ambulating Lines/Catheters [facility] Saline Lock Urinary Cath still in place: No Assessment/Plan Hospital Course SUBJECTIVE: Abdominal pain well controlled with analgesics. OBJECTIVE: Physical Exam General: Adequately build 48 year-old male lying in bed in no apparent distress, looks disheveled. HEENT: Normocephalic, atraumatic. Eyes: Anicteric sclerae, conjunctivae clear. ENT: Nasal septum midline, oral mucosa is dry moist. Neck supple, no JVD noticed. Respiratory: Bilaterally clear breath sounds. No use of accessory muscles of respiration. No adventitious breath sounds. Cardiovascular: S1, S2 heard. Regular rate and rhythm. Abdomen: Soft and nondistended. LLQ tenderness. Bowel sounds positive in all 4 quadrants. Genitourinary: Deferred. Extremities: No cyanosis, no clubbing, no edema. Peripheral pulses palpable. Neurologic: Cranial nerves II through XII grossly intact. The patient is awake, alert, and oriented. Skin: Normal skin turgor. No skin rashes. Labs & Vitals per chart ASSESSMENT & PLAN 48-year-old male with comorbidities including hepatitis C, polysubstance abuse, and bipolar disorder who presented to the emergency room with chief complaint of abdominal pain with CT evidence of perforated diverticulitis and underlying sepsis, who was admitted to inpatient setting for further treatment and evaluation. 1. Sepsis with leukocytosis, and tachycardia present on admission. -Most probably secondary to underlying intra-abdominal process. -Continue IV fluids. -Continue empiric antimicrobials. -Monitor for any early signs of septic shock. 2. Acute diverticulitis with perforation. -Continue n.p.o. -Continue IV fluids. -Continue empiric antimicrobials including coverage for anaerobes (carbapenem) and enterococci (vancomycin). -General surgery following. Patient currently on conservative management. 3. Nicotine use. -Continue the patient on nicotine patch. 4. Bipolar disorder with psychotic component. -Will hold oral antipsychotics until the patient is able to take oral intake. 5. History of methamphetamine abuse. -Obtain urine drug screen. 6. Fluids, electrolytes, and nutrition. -N.p.o. -Continue IV fluids. 7. DVT prophylaxis. -Bilateral SCDs 8. Plan. -Continue antimicrobials. -Continue pain control. -Await clinical improvement. The patient was seen in collaboration with Dr. Chin. Result Diagram: 01/31/19 0548 01/31/19 0548 Results 24hrs Laboratory Tests Test 01/31/19 05:48 White Blood Count 12.4 #H Red Blood Count 4.42 L Hemoglobin 12.9 L Hematocrit 38.7 L Mean Corpuscular Volume 87.6 Mean Corpuscular Hemoglobin 29.2 Mean Corpuscular Hemoglobin Concent 33.3 Red Cell Distribution Width 13.4 Platelet Count 208 Mean Platelet Volume 9.7 Immature Granulocytes % 0.700 H Neutrophils % 66.8 Lymphocytes % 13.4 L Monocytes % 14.1 H Eosinophils % 4.5 Basophils % 0.5 Nucleated Red Blood Cells % 0.0 Immature Granulocytes # 0.090 H Neutrophils # 8.3 H Lymphocytes # 1.7 Monocytes # 1.7 H Eosinophils # 0.6 H Basophils # 0.1 Nucleated Red Blood Cells # 0.0 Erythrocyte Sedimentation Rate 60 H Prothrombin Time 14.5 Prothrombin Time Ratio 1.1 INR International Normalized Ratio 1.12 Activated Partial Thromboplast Time 36.2 H Sodium Level 141 Potassium Level 4.1 Chloride Level 107 Carbon Dioxide Level 26 Anion Gap 8 Blood Urea Nitrogen 16 Creatinine 0.73 Est Glomerular Filtrat Rate mL/min > 60 Glucose Level 99 Lactic Acid Level 0.7 Calcium Level 8.4 Phosphorus Level 2.9 Magnesium Level 1.8 Total Bilirubin 0.6 Direct Bilirubin 0.00 Indirect Bilirubin 0.6 Aspartate Amino Transf (AST/SGOT) 14 L Alanine Aminotransferase (ALT/SGPT) 15 Alkaline Phosphatase 74 C-Reactive Protein 20.8 H Total Protein 6.9 # Albumin 3.5 Globulin 3.40 H Albumin/Globulin Ratio 1.02 Triglycerides Level 115 Cholesterol Level 152 LDL Cholesterol, Calculated 96 HDL Cholesterol 33 Cholesterol/HDL Ratio 4.6 Exam/Review of Systems Exam Vitals Vital Signs Date Temp Pulse Resp B/P (MAP) Pulse Ox O2 O2 Flow FiO2 Time Delivery Rate 01/31/19 98.8 88 20 114/72 96 08:00 (86) 01/31/19 Room Air 02:00 Results Results 24hrs Laboratory Tests Test 01/31/19 05:48 White Blood Count 12.4 #H Red Blood Count 4.42 L Hemoglobin 12.9 L Hematocrit 38.7 L Mean Corpuscular Volume 87.6 Mean Corpuscular Hemoglobin 29.2 Mean Corpuscular Hemoglobin Concent 33.3 Red Cell Distribution Width 13.4 Platelet Count 208 Mean Platelet Volume 9.7 Immature Granulocytes % 0.700 H Neutrophils % 66.8 Lymphocytes % 13.4 L Monocytes % 14.1 H Eosinophils % 4.5 Basophils % 0.5 Nucleated Red Blood Cells % 0.0 Immature Granulocytes # 0.090 H Neutrophils # 8.3 H Lymphocytes # 1.7 Monocytes # 1.7 H Eosinophils # 0.6 H Basophils # 0.1 Nucleated Red Blood Cells # 0.0 Erythrocyte Sedimentation Rate 60 H Prothrombin Time 14.5 Prothrombin Time Ratio 1.1 INR International Normalized Ratio 1.12 Activated Partial Thromboplast Time 36.2 H Sodium Level 141 Potassium Level 4.1 Chloride Level 107 Carbon Dioxide Level 26 Anion Gap 8 Blood Urea Nitrogen 16 Creatinine 0.73 Est Glomerular Filtrat Rate mL/min > 60 Glucose Level 99 Lactic Acid Level 0.7 Calcium Level 8.4 Phosphorus Level 2.9 Magnesium Level 1.8 Total Bilirubin 0.6 Direct Bilirubin 0.00 Indirect Bilirubin 0.6 Aspartate Amino Transf (AST/SGOT) 14 L Alanine Aminotransferase (ALT/SGPT) 15 Alkaline Phosphatase 74 C-Reactive Protein 20.8 H Total Protein 6.9 # Albumin 3.5 Globulin 3.40 H Albumin/Globulin Ratio 1.02 Triglycerides Level 115 Cholesterol Level 152 LDL Cholesterol, Calculated 96 HDL Cholesterol 33 Cholesterol/HDL Ratio 4.6 Medications Medication Current Medications Sodium Chloride 1,000 ml @ 125 mls/hr Q8H IV Last administered on 01/30/19at 20:21; Admin Dose 125 MLS/HR; Start 01/30/19 at 18:18 IV Flush (NS 3 ml) 3 ml PER PROTOCOL IV ; Start 01/30/19 at 18:30 Ondansetron HCl (Zofran Inj) 4 mg Q6H PRN IV NAUSEA/VOMITING; Start 01/30/19 at 18:30 Morphine Sulfate (morphine) 2 mg Q4H PRN IV .SEVERE PAIN 7-10 Last administered on 01/31/19at 07:32; Admin Dose 2 MG; Start 01/30/19 at 18:30 Meropenem/Sodium Chloride 50 ml @ 100 mls/hr Q8 IVPB Last administered on 01/31/19at 07:44; Admin Dose 100 MLS/HR; Start 01/30/19 at 22:00 Nicotine (Nicoderm 14 Mg/ 24hr) 1 patch DAILY TRANSDERM ; Start 01/30/19 at 18:30 Vancomycin HCl (Vanco Iv Per Pharmacy) VANCOMYCIN PER PHARMACY PER PROTOCOL XX ; Start 01/30/19 at 18:30 Vancomycin HCl 1.25 gm/Sodium Chloride 250 ml @ 83.333 mls/ hr Q12H IVPB Last administered on 01/31/19at 09:07; Admin Dose 83.333 MLS/HR; Start 01/31/19 at 08:00 Hydromorphone HCl (Dilaudid) 0.5 mg Q4H PRN IV SEVERE PAIN LEVEL 7-10 Last administered on 01/31/19at 11:37; Admin Dose 0.5 MG; Start 01/30/19 at 22:30 JUDITH KENDALL NP January 31, 2019 14:08
--- NOTE | 2019-01-31 18:08 | PN ---
Date/Time of Note Date/Time of Note DATE: 01/31/19 TIME: 18:07 Assessment/Plan Lines/Catheters IV Catheter Type (from Nrs): Saline Lock Medrano in Place (from Nrsg): No Assessment/Plan Assessment/Plan HD#1 Improving Continue NPO Afebrile and decreasing WBC Subjective 24 Hr Interval Summary Constitutional: other (feels better, no BM or flatus) Exam/Review of Systems Vital Signs Vitals Vital Signs Date Temp Pulse Resp B/P (MAP) Pulse Ox O2 O2 Flow FiO2 Time Delivery Rate 01/31/19 97.8 96 18 120/72 96 14:00 (88) 01/31/19 Room Air 02:00 Exam Constitutional: alert, oriented, well developed Neck: supple Respiratory: clear to auscultation Cardiovascular: regular rate and rhythm Gastrointestinal: soft, other (decreased tenderness and decreased distension) Results Result Diagram: 01/31/19 0548 01/31/19 0548 OZ BALL MD January 31, 2019 18:08
[2019-01-31 20:00] VITALS: BP 115/78; PULSE 71; RESP 18
[2019-02-01] MEDS: HYDROmorphONE 0.5 MG/0.5 ML SYG IV PRN ×3 (01:00→10:00)
[2019-02-01] MEDS: SOD CHLORIDE 0.9% 1,000 ML IV SCH ×4 (01:04→20:55)
[2019-02-01 02:04] VITALS: BP 130/83; PULSE 93; RESP 20
[2019-02-01] MEDS ORDERED: SENNA TAB PO PRN (02:30)
[2019-02-01] MEDS: MEROPENEM 1 GM/50ML(PMX) 50 ML IVPB SCH ×3 (06:41→22:02)
[2019-02-01] MEDS: morphine 2 MG INJ IV PRN ×2 (07:52→13:20)
[2019-02-01 08:04] VITALS: BP 113/69; PULSE 75; RESP 16
[2019-02-01] MEDS: NICOTINE (14 MG/24 HR) PATCH TRANSDERM SCH (09:00)
[2019-02-01] MEDS: VANCOMYCIN HCL 1.25 GM in SOD CHLORIDE 0.9% 250 ML IVPB SCH (09:18)
[2019-02-01] MEDS: MUPIROCIN 2% 22 GM OINT TOP SCH ×2 (13:20→21:03)
--- NOTE | 2019-02-01 13:35 | PN ---
Date/Time of Note Date/Time of Note DATE: 02/01/19 TIME: 13:34 Assessment/Plan VTE Prophylaxis Risk score (from Nsg)>0 risk: 1 SCD applied (from Nsg): Yes Pharmacological prophylaxis: NA/contraindicated Pharm contraindication: low risk/ambulating Lines/Catheters IV Catheter Type (from Nrsg): Peripheral IV Urinary Cath still in place: No Assessment/Plan Hospital Course SUBJECTIVE: Abdominal pain well controlled with analgesics. Complains of hunger pain. OBJECTIVE: Physical Exam General: Adequately build 48 year-old male lying in bed in no apparent distress, looks disheveled. HEENT: Normocephalic, atraumatic. Eyes: Anicteric sclerae, conjunctivae clear. ENT: Nasal septum midline, oral mucosa is dry moist. Neck supple, no JVD noticed. Respiratory: Bilaterally clear breath sounds. No use of accessory muscles of respiration. No adventitious breath sounds. Cardiovascular: S1, S2 heard. Regular rate and rhythm. Abdomen: Soft and nondistended. LLQ tenderness. Bowel sounds positive in all 4 quadrants. Genitourinary: Deferred. Extremities: No cyanosis, no clubbing, no edema. Peripheral pulses palpable. Neurologic: Cranial nerves II through XII grossly intact. The patient is awake, alert, and oriented. Skin: Normal skin turgor. No skin rashes. Labs & Vitals per chart ASSESSMENT & PLAN 48-year-old male with comorbidities including hepatitis C, polysubstance abuse, and bipolar disorder who presented to the emergency room with chief complaint of abdominal pain with CT evidence of perforated diverticulitis and underlying sepsis, who was admitted to inpatient setting for further treatment and evaluation. 1. Sepsis with leukocytosis, and tachycardia present on admission. -Most probably secondary to underlying intra-abdominal process. -Continue IV fluids. -Continue empiric antimicrobials. -Monitor for any early signs of septic shock. 2. Acute diverticulitis with perforation. -Continue n.p.o. -Continue IV fluids. -Continue empiric antimicrobials including coverage for anaerobes (carbapenem) and enterococci (vancomycin). -General surgery following. Patient currently on conservative management. 3. Nicotine use. -Continue the patient on nicotine patch. 4. Bipolar disorder with psychotic component. -Will hold oral antipsychotics until the patient is able to take oral intake. 5. History of methamphetamine abuse. -Obtain urine drug screen. 6. Fluids, electrolytes, and nutrition. -N.p.o. -Continue IV fluids. 7. DVT prophylaxis. -Bilateral SCDs 8. Plan. -Continue antimicrobials. -Continue pain control. -Await clinical improvement. The patient was seen in collaboration with Dr. Anderson. Result Diagram: 02/01/19 0753 02/01/19 0753 Results 24hrs Laboratory Tests Test 02/01/19 07:53 02/01/19 08:30 White Blood Count 8.3 # Red Blood Count 4.18 L Hemoglobin 12.3 L Hematocrit 36.1 L Mean Corpuscular Volume 86.4 Mean Corpuscular Hemoglobin 29.4 Mean Corpuscular Hemoglobin Concent 34.1 Red Cell Distribution Width 12.4 Platelet Count 201 Mean Platelet Volume 8.8 Immature Granulocytes % 0.500 H Neutrophils % 68.1 Lymphocytes % 13.1 L Monocytes % 11.8 H Eosinophils % 5.9 Basophils % 0.6 Nucleated Red Blood Cells % 0.0 Immature Granulocytes # 0.040 H Neutrophils # 5.7 Lymphocytes # 1.1 Monocytes # 1.0 H Eosinophils # 0.5 Basophils # 0.1 Nucleated Red Blood Cells # 0.0 Sodium Level 139 Potassium Level 3.9 Chloride Level 107 Carbon Dioxide Level 25 Anion Gap 7 Blood Urea Nitrogen 17 Creatinine 0.66 Est Glomerular Filtrat Rate mL/min > 60 Glucose Level 85 Calcium Level 8.4 Phosphorus Level 3.2 Magnesium Level 1.9 Vancomycin Level Trough 9.1 L Urine Color YELLOW Urine Clarity CLEAR Urine pH 6.0 Urine Specific [place] 1.024 Urine Ketones 2+ H Urine Nitrite NEGATIVE Urine Bilirubin NEGATIVE Urine Urobilinogen 2+ H Urine Leukocyte Esterase NEGATIVE Urine Hemoglobin NEGATIVE Urine Glucose NEGATIVE Urine Total Protein NEGATIVE Urine Opiates Screen Positive Urine Barbiturates Negative Urine Amphetamines Screen Negative Urine Benzodiazepines Screen Negative Urine Cocaine Screen Negative Urine Cannabinoids Positive Exam/Review of Systems Exam Vitals Vital Signs Date Temp Pulse Resp B/P (MAP) Pulse Ox O2 O2 Flow FiO2 Time Delivery Rate 02/01/19 97.7 75 16 113/69 93 08:04 (84) 01/31/19 Room Air 02:00 Intake and Output 01/31/19 01/31/19 02/01/19 1515:00 23:00 07:00 IntakeIntake Total 250 ml 600 ml 1050 ml OutputOutput Total 300 ml BalanceBalance 250 ml 300 ml 1050 ml Results Results 24hrs Laboratory Tests Test 02/01/19 07:53 02/01/19 08:30 White Blood Count 8.3 # Red Blood Count 4.18 L Hemoglobin 12.3 L Hematocrit 36.1 L Mean Corpuscular Volume 86.4 Mean Corpuscular Hemoglobin 29.4 Mean Corpuscular Hemoglobin Concent 34.1 Red Cell Distribution Width 12.4 Platelet Count 201 Mean Platelet Volume 8.8 Immature Granulocytes % 0.500 H Neutrophils % 68.1 Lymphocytes % 13.1 L Monocytes % 11.8 H Eosinophils % 5.9 Basophils % 0.6 Nucleated Red Blood Cells % 0.0 Immature Granulocytes # 0.040 H Neutrophils # 5.7 Lymphocytes # 1.1 Monocytes # 1.0 H Eosinophils # 0.5 Basophils # 0.1 Nucleated Red Blood Cells # 0.0 Sodium Level 139 Potassium Level 3.9 Chloride Level 107 Carbon Dioxide Level 25 Anion Gap 7 Blood Urea Nitrogen 17 Creatinine 0.66 Est Glomerular Filtrat Rate mL/min > 60 Glucose Level 85 Calcium Level 8.4 Phosphorus Level 3.2 Magnesium Level 1.9 Vancomycin Level Trough 9.1 L Urine Color YELLOW Urine Clarity CLEAR Urine pH 6.0 Urine Specific [place] 1.024 Urine Ketones 2+ H Urine Nitrite NEGATIVE Urine Bilirubin NEGATIVE Urine Urobilinogen 2+ H Urine Leukocyte Esterase NEGATIVE Urine Hemoglobin NEGATIVE Urine Glucose NEGATIVE Urine Total Protein NEGATIVE Urine Opiates Screen Positive Urine Barbiturates Negative Urine Amphetamines Screen Negative Urine Benzodiazepines Screen Negative Urine Cocaine Screen Negative Urine Cannabinoids Positive Medications Medication Current Medications Sodium Chloride 1,000 ml @ 125 mls/hr Q8H IV Last administered on 02/01/19at 01:04; Admin Dose 125 MLS/HR; Start 01/30/19 at 18:18 IV Flush (NS 3 ml) 3 ml PER PROTOCOL IV ; Start 01/30/19 at 18:30 Ondansetron HCl (Zofran Inj) 4 mg Q6H PRN IV NAUSEA/VOMITING; Start 01/30/19 at 18:30 Morphine Sulfate (morphine) 2 mg Q4H PRN IV .SEVERE PAIN 7-10 Last administered on 02/01/19at 13:20; Admin Dose 2 MG; Start 01/30/19 at 18:30 Meropenem/Sodium Chloride 50 ml @ 100 mls/hr Q8 IVPB Last administered on 02/01/19at 13:26; Admin Dose 100 MLS/HR; Start 01/30/19 at 22:00 Nicotine (Nicoderm 14 Mg/ 24hr) 1 patch DAILY TRANSDERM ; Start 01/30/19 at 18:30 Vancomycin HCl (Vanco Iv Per Pharmacy) VANCOMYCIN PER PHARMACY PER PROTOCOL XX ; Start 01/30/19 at 18:30 Vancomycin HCl 1.25 gm/Sodium Chloride 250 ml @ 83.333 mls/ hr Q12H IVPB Last administered on 02/01/19at 09:18; Admin Dose 83.333 MLS/HR; Start 01/31/19 at 08:00 Hydromorphone HCl (Dilaudid) 0.5 mg Q4H PRN IV SEVERE PAIN LEVEL 7-10 Last administered on 02/01/19at 10:00; Admin Dose 0.5 MG; Start 01/30/19 at 22:30 Senna (Senokot) 2 tab BID PRN PO Constipation; Start 02/01/19 at 02:30 Mupirocin (Bactroban) 1 applic BID TOP Last administered on 02/01/19at 13:20; Admin Dose 1 APPLIC; Start 02/01/19 at 10:30 JUDITH KENDALL NP Feb 01, 2019 13:35
[2019-02-01 14:25] VITALS: BP 120/72; PULSE 75; RESP 18
[2019-02-01] MEDS: HYDROmorphONE 1 MG/ML SYG IV PRN ×3 (15:04→23:05)
--- NOTE | 2019-02-01 15:17 | PN ---
Date/Time of Note Date/Time of Note DATE: 02/01/19 TIME: 15:16 Assessment/Plan Lines/Catheters IV Catheter Type (from Nrs): Peripheral IV Medrano in Place (from Nrs): No Assessment/Plan Assessment/Plan Hospital day #2 for perforated diverticulitis Improving clinically. Afebrile since admission and normal white count. Having bowel function. Will start clears. CT tomorrow to rule out abscess as patient has high likelihood of developing an abscess Subjective 24 Hr Interval Summary Constitutional: improved, BM Pain Control: mild Exam/Review of Systems Vital Signs Vitals Vital Signs Date Temp Pulse Resp B/P (MAP) Pulse Ox O2 O2 Flow FiO2 Time Delivery Rate 02/01/19 98.0 75 18 120/72 95 14:25 (88) 01/31/19 Room Air 02:00 Intake and Output 01/31/19 01/31/19 02/01/19 1515:00 23:00 07:00 IntakeIntake Total 250 ml 600 ml 1050 ml OutputOutput Total 300 ml BalanceBalance 250 ml 300 ml 1050 ml Exam Constitutional: alert, oriented Gastrointestinal: soft, other (Mild left lower quadrant tenderness) Results Result Diagram: 02/01/19 0753 02/01/19 0753 OZ BALL MD Feb 01, 2019 15:17
[2019-02-01] MEDS ORDERED: IOHEXOL 14.3 MG(I)/ML (ADULT) BTL PO ONE (15:30)
[2019-02-01 20:34] VITALS: BP 122/86; PULSE 75; RESP 18
[2019-02-01] MEDS: VANCOMYCIN HCL 1.5 GM in SOD CHLORIDE 0.9% 250 ML IVPB SCH (20:59)
[2019-02-01] MEDS ORDERED: DIPHENHYDRAMINE 50 MG CAP PO ONE (23:30)
[2019-02-02 02:00] VITALS: BP 108/58; PULSE 69; RESP 20
[2019-02-02] MEDS: HYDROmorphONE 2 MG TAB PO PRN ×2 (04:55→11:43)
[2019-02-02] MEDS: MEROPENEM 1 GM/50ML(PMX) 50 ML IVPB SCH ×2 (06:15→13:55)
[2019-02-02 08:00] VITALS: BP 114/71; PULSE 64; RESP 17
[2019-02-02] MEDS: VANCOMYCIN HCL 1.5 GM in SOD CHLORIDE 0.9% 250 ML IVPB SCH (08:43)
[2019-02-02] MEDS: NICOTINE (14 MG/24 HR) PATCH TRANSDERM SCH (08:44)
[2019-02-02] MEDS: MUPIROCIN 2% 22 GM OINT TOP SCH (08:44)
[2019-02-02] MEDS: SOD CHLORIDE 0.9% 1,000 ML IV SCH (08:49)
[2019-02-02] MEDS ORDERED: SOD CHLORIDE 0.9% 100 ML ONE (11:44)
[2019-02-02] MEDS ORDERED: IOHEXOL 300MG/ML 150 ML BTL ONE (11:44)
--- NOTE | 2019-02-02 11:55 | PN ---
Date/Time of Note Date/Time of Note DATE: 02/02/19 TIME: 11:52 Assessment/Plan VTE Prophylaxis Risk score (from Ns)>0 risk: 2 SCD applied (from Ns): Yes Pharmacological prophylaxis: NA/contraindicated Pharm contraindication: low risk/ambulating Lines/Catheters IV Catheter Type (from Nrsg): Peripheral IV Urinary Cath still in place: No Assessment/Plan Hospital Course SUBJECTIVE: Abdominal pain well controlled with analgesics. Complains of hunger pain.Was started on clears on 02/01/2019. OBJECTIVE: Physical Exam General: Adequately build 48 year-old male lying in bed in no apparent distress, looks disheveled. HEENT: Normocephalic, atraumatic. Eyes: Anicteric sclerae, conjunctivae clear. ENT: Nasal septum midline, oral mucosa is dry moist. Neck supple, no JVD noticed. Respiratory: Bilaterally clear breath sounds. No use of accessory muscles of respiration. No adventitious breath sounds. Cardiovascular: S1, S2 heard. Regular rate and rhythm. Abdomen: Soft and nondistended. LLQ tenderness. Bowel sounds positive in all 4 quadrants. Genitourinary: Deferred. Extremities: No cyanosis, no clubbing, no edema. Peripheral pulses palpable. Neurologic: Cranial nerves II through XII grossly intact. The patient is awake, alert, and oriented. Skin: Normal skin turgor. No skin rashes. Labs & Vitals per chart ASSESSMENT & PLAN 48-year-old male with comorbidities including hepatitis C, polysubstance abuse, and bipolar disorder who presented to the emergency room with chief complaint of abdominal pain with CT evidence of perforated diverticulitis and underlying sepsis, who was admitted to inpatient setting for further treatment and evaluation. 1. S/P sepsis with leukocytosis, and tachycardia present on admission. -Most probably secondary to underlying intra-abdominal process. -Continue IV fluids. -Continue empiric antimicrobials. 2. Acute diverticulitis with perforation. -S/P bowel rest. -Started on clears on 02/01/2019.Continue n.p.o. -Continue empiric antimicrobials including coverage for anaerobes (carbapenem) and enterococci (vancomycin). -General surgery following. Patient currently on conservative management. -Repeat CT scan pending. 3. Nicotine use. -Continue the patient on nicotine patch. 4. Bipolar disorder with psychotic component. -Resume oral antipsychotics. 5. History of methamphetamine abuse. -Cessation advised. 6. Fluids, electrolytes, and nutrition. -Clear liquids. -Advancement of diet will be deferred to the surgeon. 7. DVT prophylaxis. -Bilateral SCDs 8. Plan. -Continue antimicrobials. -Continue pain control. -Await clinical improvement. The patient was seen in collaboration with Dr. Anderson. Result Diagram: 02/02/19 0543 02/02/19 0543 Results 24hrs Laboratory Tests Test 02/02/19 05:43 White Blood Count 8.1 Red Blood Count 4.09 L Hemoglobin 12.0 L Hematocrit 34.6 L Mean Corpuscular Volume 84.6 Mean Corpuscular Hemoglobin 29.3 Mean Corpuscular Hemoglobin Concent 34.7 Red Cell Distribution Width 11.9 Platelet Count 225 Mean Platelet Volume 9.3 Immature Granulocytes % 0.600 H Neutrophils % 65.3 Lymphocytes % 16.0 Monocytes % 11.8 H Eosinophils % 5.7 Basophils % 0.6 Nucleated Red Blood Cells % 0.0 Immature Granulocytes # 0.050 H Neutrophils # 5.3 Lymphocytes # 1.3 Monocytes # 1.0 H Eosinophils # 0.5 Basophils # 0.1 Nucleated Red Blood Cells # 0.0 Sodium Level 138 Potassium Level 4.0 Chloride Level 105 Carbon Dioxide Level 26 Anion Gap 7 Blood Urea Nitrogen 9 Creatinine 0.57 L Est Glomerular Filtrat Rate mL/min > 60 Glucose Level 101 Calcium Level 8.2 L Phosphorus Level 2.7 Magnesium Level 1.8 Exam/Review of Systems Exam Vitals Vital Signs Date Temp Pulse Resp B/P (MAP) Pulse Ox O2 O2 Flow FiO2 Time Delivery Rate 02/02/19 97.7 64 17 114/71 96 Room Air 08:00 (85) Intake and Output 02/01/19 02/01/19 02/02/19 1515:00 23:00 07:00 IntakeIntake Total 1350 ml 1670 ml 1500 ml BalanceBalance 1350 ml 1670 ml 1500 ml Results Results 24hrs Laboratory Tests Test 02/02/19 05:43 White Blood Count 8.1 Red Blood Count 4.09 L Hemoglobin 12.0 L Hematocrit 34.6 L Mean Corpuscular Volume 84.6 Mean Corpuscular Hemoglobin 29.3 Mean Corpuscular Hemoglobin Concent 34.7 Red Cell Distribution Width 11.9 Platelet Count 225 Mean Platelet Volume 9.3 Immature Granulocytes % 0.600 H Neutrophils % 65.3 Lymphocytes % 16.0 Monocytes % 11.8 H Eosinophils % 5.7 Basophils % 0.6 Nucleated Red Blood Cells % 0.0 Immature Granulocytes # 0.050 H Neutrophils # 5.3 Lymphocytes # 1.3 Monocytes # 1.0 H Eosinophils # 0.5 Basophils # 0.1 Nucleated Red Blood Cells # 0.0 Sodium Level 138 Potassium Level 4.0 Chloride Level 105 Carbon Dioxide Level 26 Anion Gap 7 Blood Urea Nitrogen 9 Creatinine 0.57 L Est Glomerular Filtrat Rate mL/min > 60 Glucose Level 101 Calcium Level 8.2 L Phosphorus Level 2.7 Magnesium Level 1.8 Medications Medication Current Medications Sodium Chloride 1,000 ml @ 125 mls/hr Q8H IV Last administered on 02/02/19at 08:49; Admin Dose 125 MLS/HR; Start 01/30/19 at 18:18 IV Flush (NS 3 ml) 3 ml PER PROTOCOL IV ; Start 01/30/19 at 18:30 Ondansetron HCl (Zofran Inj) 4 mg Q6H PRN IV NAUSEA/VOMITING; Start 01/30/19 at 18:30 Meropenem/Sodium Chloride 50 ml @ 100 mls/hr Q8 IVPB Last administered on 02/02/19 06:15; Admin Dose 100 MLS/HR; Start 01/30/19 at 22:00 Nicotine (Nicoderm 14 Mg/ 24hr) 1 patch DAILY TRANSDERM ; Start 01/30/19 at 18:30 Vancomycin HCl (Vanco Iv Per Pharmacy) VANCOMYCIN PER PHARMACY PER PROTOCOL XX ; Start 01/30/19 at 18:30 Senna (Senokot) 2 tab BID PRN PO Constipation; Start 02/01/19 at 02:30 Mupirocin (Bactroban) 1 applic BID TOP Last administered on 02/02/19at 08:44; Admin Dose 1 APPLIC; Start 02/01/19 at 10:30 Vancomycin HCl 1.5 gm/Sodium Chloride 250 ml @ 83.333 mls/ hr Q12H IVPB Last administered on 02/02/19 08:43; Admin Dose 83.333 MLS/HR; Start 02/01/19 at 20:00 Hydromorphone HCl (Dilaudid) 1 mg Q4H PRN PO SEVERE PAIN LEVEL 7-10 Last administered on 02/02/19at 11:43; Admin Dose 1 MG; Start 02/02/19 at 05:00 JUDITH KENDALL NP Feb 02, 2019 11:55
[2019-02-02 13:57] VITALS: BP 123/78; PULSE 57; RESP 16
[2019-02-02] MEDS ORDERED: ACETAMINOPHEN 325 MG TAB PO PRN (14:00)
--- NOTE | 2019-02-02 14:56 | PN ---
Date/Time of Note Date/Time of Note DATE: 02/02/19 TIME: 14:52 Assessment/Plan Lines/Catheters IV Catheter Type (from Rust): Peripheral IV Medrano in Place (from Nrs): No Assessment/Plan Assessment/Plan Resolving acute perforated appendicitis CT shows improvement - no drainable collection Patient has been afebrile and with normal white count since admission. Advance to soft diet in a.m. Recommend PICC line and IV antibiotics for approximately 2 weeks. Subjective 24 Hr Interval Summary Constitutional: no complaints, BM, flatus Feeding: clear Pain Control: mild Exam/Review of Systems Vital Signs Vitals Vital Signs Date Temp Pulse Resp B/P (MAP) Pulse Ox O2 O2 Flow FiO2 Time Delivery Rate 02/02/19 99.0 57 16 123/78 97 Room Air 13:57 (93) Intake and Output 02/01/19 02/01/19 02/02/19 1515:00 23:00 07:00 IntakeIntake Total 1350 ml 1670 ml 1500 ml BalanceBalance 1350 ml 1670 ml 1500 ml Exam Constitutional: alert, oriented, well developed Gastrointestinal: soft, distended (Mildly), other (minimal LLQ tenderenss) Results Result Diagram: 02/02/19 0543 02/02/19 0543 Procedures Procedures Patient: MOLLY WILLIAM : 1970 Age: 48 Sex: M MR #: [id number] DOS: 02/02/19 0000 Ordering MD: OZ BALL MD Location: [facility] Room/Bed: [facility] PROCEDURE: CT abdomen and pelvis with contrast. CLINICAL INDICATION: Diverticulitis. Abscess. TECHNIQUE: CT scan of the abdomen and pelvis with oral contrast was performed and is reconstructed at 2.5 mm contiguous axial intervals from the dome of the diaphragm to the inferior pubic rami.. The patient was scanned with intravenous contrast. Sagittal and coronal reformatted images were obtained from the axial source images. The calculated radiation dose measures 582 mGy centimeters. The CTDI measures 10 mGy. Individualized dose optimization technique was used for the performance of this exam. This included 1. Automated exposure control. 2. Adjustment of the mA and / or kV according to the patient's size. 3. Use of iterative reconstructed technique. DICOM images are available. COMPARISON: CT abdomen pelvis January 30, 2019 FINDINGS: The lung bases are clear of any infiltrate or nodule. A small pericardial effusion is seen. Liver is enlarged measuring 19 cm in length. It is of normal contour. There is mild diffuse fatty infiltration. Noted is a 5 mm cyst in the posterior segment of the right lobe. Gallbladder has been removed and there is mild presumed physiologic intra and extrahepatic bile duct dilatation. No stones are visualized. No splenic, adrenal or pancreatic abnormalities present. Kidneys enhance symmetrically and are of normal size and contour. No hydronephrosis, calculus or solid mass Is seen. Noted is a 17 mm parenchymal cyst in the lower pole of the right kidney. Ureters are of normal course and caliber with no stone. No bladder mass or stone is present. Prostate and seminal vesicles appear normal. There is no aneurysm. No adenopathy is present. There are multiple visible but nonpathologically enlarged retroperitoneal nodes. No bowel mass or obstruction is present. Again noted is diverticulosis. No extravasation is present. There is persistent extraluminal gas subjacent to the sigmoid in the left mey pelvis. The volume of gas has not changed appreciably in the interim. There is stranding of the fat. Noted is a focal fluid and gas collection along the left psoas muscle measuring approximately 3 cm in maximum transverse diameter unchanged. There is no associated rim enhancement. Small gas bubbles are seen adjacent to the medial aspect of the spleen. There has been partial resorption of the upper abdominal gas. The appendix is normal. No phlegmon, ascites or pneumoperitoneum is visualized. The osseous structures are intact. IMPRESSION: Perforated sigmoid diverticulitis with persistent collection of gas bubbles left mey pelvis. No active extravasation. Phlegmonous infiltration pericolic fat. A stable focal fluid collection adjacent to the psoas without rim enhancement. Interval partial resorption of upper abdominal gas. Visible but nonpathologically enlarged retroperitoneal nodes. Enlarged fatty liver. Post cholecystectomy with presumed physiologic mild intra and extrahepatic bile duct dilatation. No stones detected. Tiny right hepatic cyst. Small pericardial effusion. .Brady Arteaga MD, Date Time Electronically viewed and signed by .Brady Arteaga MD, on 02/02/2019 14:10 OZ BALL MD Feb 02, 2019 14:56
--- NOTE | 2019-02-02 16:39 | DS ---
Date/Time of Note Date/Time of Note DATE: 02/02/19 TIME: 16:39 Discharge Summary Admission/Discharge Info Admit Date/Time January 30, 2019 at 15:47 Discharge Date/Time Left AGAINST MEDICAL ADVICE Discharge Diagnosis 1. S/P sepsis with leukocytosis, and tachycardia present on admission. 2. Acute diverticulitis with perforation. 3. Nicotine use. 4. Bipolar disorder with psychotic component. 5. History of methamphetamine abuse. Patient Condition: Guarded Consults 1. Godwin Tinoco MD, General Surgery. Procedures CT Abdomen & Pelvis on 01/30/2019 IMPRESSION: 1. ACUTE DIVERTICULITIS INVOLVING THE MID TO DISTAL SIGMOID COLON. THERE IS PERFORATION, WITH ADJACENT FOCI OF FREE AIR WELL A MODERATE AMOUNT OF FREE AIR, WITHIN THE LEFT LOWER QUADRANT, EXTENDING SUPERIORLY ANTERIOR THE RETROPERITONEUM UP TO THE LEVEL OF THE STOMACH. THERE IS ALSO A 2.9 CM ILL- DEFINED AREA OF FLUID AND AIR MEDIAL TO THE LEFT PSOAS MUSCLE, WORRISOME FOR EARLY DEVELOPING ABSCESS. 2. No evidence of bowel obstruction. Fluid-filled loops of large bowel suggestive of watery diarrhea. The appendix is within normal limits. 3. 1.5 cm right-sided renal cyst. CT Abdomen & Pelvis on 02/02/2019 IMPRESSION: Perforated sigmoid diverticulitis with persistent collection of gas bubbles left mey pelvis. No active extravasation. Phlegmonous infiltration pericolic fat. A stable focal fluid collection adjacent to the psoas without rim enhancement. Interval partial resorption of upper abdominal gas. Visible but non-pathologically enlarged retroperitoneal nodes. Enlarged fatty liver. Post cholecystectomy with presumed physiologic mild intra and extrahepatic bile duct dilatation. No stones detected. Tiny right hepatic cyst. Small pericardial effusion. Hx of Present Illness Reason for admission: Abdominal pain. CT evidence of perforated diverticulitis. Consultants 1. Godwin Tinoco MD, General Surgery. This is a 48-year-old male with past medical history of polysubstance abuse including IV methamphetamine abuse, bipolar disorder with psychotic component, and hepatitis C who came to the emergency room with a chief complaint of abdominal pain. The patient verbalized that the abdominal pain started on . The patient was complaining of chills. The patient denied any fevers. He denied any nausea/vomiting. He denied any diarrhea. He denied any urinary urgency or frequency. In the emergency room, the patient was noticed to have leukocytosis (WBC 16.2). The patient was afebrile. The patient was tachycardic. The patient underwent a CT scan of the abdomen and pelvis that was showing acute diverticulitis involving the mid to distal sigmoid colon with perforation with adjacent foci of free air as well as more prominent amount of free air within the left lower quadrant extending superiorly anterior to the retroperitoneum up to the level of the stomach. The CT also revealed ill-defined 2.9 cm fluid and air medial to the left psoas muscle worrisome for early developing abscess. The patient was treated with IV Zosyn along with IV analgesics in the emergency room. General surgery consult was called by the ER physician. Hospital Course The patient had evidence of underlying sepsis with leukocytosis and tachycardia, present on admission, most probably secondary to underlying intra-abdominal process. The patient was maintained on IV fluids. Pancultures were obtained. The patient was closely monitored for any septic shock. The patient had evidence of acute diverticulitis with perforation. The patient was started on antimicrobials including coverage for anaerobes (Carbapenem) and enterococci (vancomycin). General surgery was following the patient who recommended conservative management since the patient did not have any evidence of any septic shock or compromising hemodynamics. The patient was kept n.p.o. until 01/31/2019, when he was started on a clear liquid diet. The patient had a repeat CT scan of the abdomen and pelvis done on 02/02/2019 that was showing perforated sigmoid diverticulitis with persistent collection of gas bubbles in the left hemipelvis along with stable focal fluid collection adjacent to the psoas without rim enhancement and interval partial resorption of upper abdominal gas. After the repeat CT scan that was done on 02/02/2019, the patient's diet was advanced to a soft diet. General surgery recommended putting a PICC line on this patient and to discharge him on IV antibiotics for approximately 2 weeks. However, provided the patient's history of IV amphetamine abuse, it was concluded that it is not safe to put a PICC line on this patient. Meanwhile on 02/02/2019, the patient wanted to leave the hospital AGAINST MEDICAL ADVICE. He was informed about the consequences of leaving the hospital AGAINST MEDICAL ADVICE including the possibility of . Nevertheless, the patient left the hospital AGAINST MEDICAL ADVICE. No discharge planning could be done and no follow-up could be confirmed since the patient left the hospital AGAINST MEDICAL ADVICE. At this time I would like to thank Dr. Tinoco for seeing the patient and providing clinical recommendations. The patient was seen in collaboration with Dr. Anderson. Home Meds Active Scripts Acetaminophen* (Tylophen*) 500 Mg Capsule, 2 CAP PO Q8H PRN for PAIN AND OR ELEVATED TEMP, #20 CAP Prov:LEWIS LOPEZ PA-C 11/11/18 Ibuprofen* (Motrin*) 800 Mg Tab, 800 MG PO Q6, #30 TAB Prov:LEWIS LOPEZ PA-C 11/11/18 Reported Medications Paroxetine Hcl* (Paxil*) 20 Mg Tablet, 20 MG PO HS, TAB 01/30/19 Olanzapine (Zyprexa Zydis) 20 Mg Tab.rapdis, 20 MG PO QHS 01/30/19 Discontinued Scripts Cephalexin* (Keflex*) 500 Mg Capsule, 500 MG PO QID for 10 Days, CAP Prov:LEWIS LOPEZ PA-C 11/11/18 Sulfamethoxazole/Trimethoprim* (Bactrim Ds* Tablet) 1 Each Tablet, 1 TAB PO BID, #14 TAB Prov:LEWIS LOPEZ PA-C 11/11/18 Glycerin/Propylene Glycol (Moisture Eyes Drops) 30 Ml Drops, 2 DRP OP QID for 3 Days, #1 BOTTLE Prov:BRYANJENNIFER 07/04/18 Ranitidine Hcl* (Zantac*) 150 Mg Tablet, 150 MG PO BID PRN for EPIGASTRIC PAIN, #30 TAB Prov:LEKKOS,APOSTOLOS A. DO 06/08/18 Hydrocodone/Acetaminophen ([place] 10-325 Tablet) 1 Each Tablet, 1 TAB PO Q6H PRN for PAIN, #20 TAB Prov:LEKKOS,APOSTOLOS A. DO 06/08/18 Tamsulosin Hcl* (Flomax*) 0.4 Mg Cap.er.24h, 0.4 MG PO BID, #30 CAP Prov:RAE ONEILL PA-C 06/05/18 Hydrocodone/Acetaminophen ([place] 5-325 Tablet) 1 Each Tablet, 1 TAB PO Q6H PRN for PAIN, #7 TAB Prov:RAE ONEILL PA-C 06/05/18 Clonazepam* (Clonazepam*) 0.5 Mg Tablet, 0.5 MG PO Q8, #30 TAB Prov:JUDITH KENDALL MEDICAL TRANSCRIBER 05/23/18 Olanzapine* (Zyprexa*) 5 Mg Tablet, 10 MG PO HS for 30 Days, TAB Prov:JUDITH KENDALL MEDICAL TRANSCRIBER 05/23/18 Paroxetine Hcl* (Paroxetine*) 20 Mg Tablet, 20 MG PO HS, #30 TAB Prov:JUDITH KENDALL MEDICAL TRANSCRIBER 05/23/18 Follow-up Plan No follow-up plan could be confirmed since the patient left the hospital AGAINST MEDICAL ADVICE. Primary Care Provider Care Physician No Primary Time spent on discharge: < 30 minutes Pending Labs Laboratory Tests Test 02/02/19 05:43 White Blood Count 8.1 10^3/ul (4.8-10.8) Red Blood Count 4.09 10^6/ul (4.70-6.10) Hemoglobin 12.0 g/dl (14.0-18.0) Hematocrit 34.6 % (42.0-52.0) Mean Corpuscular Volume 84.6 fl (82.0-101.0) Mean Corpuscular Hemoglobin 29.3 pg (29.0-33.0) Mean Corpuscular Hemoglobin Concent 34.7 g/dl (32.0-37.0) Red Cell Distribution Width 11.9 % (11.5-14.5) Platelet Count 225 10^3/UL (140-415) Mean Platelet Volume 9.3 fl (7.4-10.4) Immature Granulocytes % 0.600 % (0.001-0.429) Neutrophils % 65.3 % (39.0-77.0) Lymphocytes % 16.0 % (15.0-51.0) Monocytes % 11.8 % (0.0-11.0) Eosinophils % 5.7 % (0.0-7.0) Basophils % 0.6 % (0.0-2.0) Nucleated Red Blood Cells % 0.0 /100WBC (0.0-0.0) Immature Granulocytes # 0.050 10^3/ul (0.0-0.031) Neutrophils # 5.3 10^3/ul (1.6-7.5) Lymphocytes # 1.3 10^3/ul (0.8-2.9) Monocytes # 1.0 10^3/ul (0.3-0.9) Eosinophils # 0.5 10^3/ul (0.0-0.5) Basophils # 0.1 10^3/ul (0.0-0.1) Nucleated Red Blood Cells # 0.0 10^3/ul (0.0-0.0) Sodium Level 138 mmol/L (135-144) Potassium Level 4.0 mmol/L (3.5-5.1) Chloride Level 105 mmol/L (97-110) Carbon Dioxide Level 26 mmol/L (21-31) Anion Gap 7 (5-13) Blood Urea Nitrogen 9 mg/dl (7-20) Creatinine 0.57 mg/dl (0.61-1.24) Est Glomerular Filtrat Rate mL/min > 60 mL/min (>60) Glucose Level 101 mg/dl (70-220) Calcium Level 8.2 mg/dl (8.4-10.2) Phosphorus Level 2.7 mg/dl (2.5-4.9) Magnesium Level 1.8 mg/dl (1.7-2.5) JUDITH KENDALL NP Feb 02, 2019 16:39
[2019-02-02] MEDS ORDERED: PAROXETINE 20 MG TAB PO SCH (21:00)
[2019-02-02] MEDS ORDERED: OLANZAPINE 5 MG TAB PO SCH (21:00)
== END 2019-02-02 16:30 | disposition left against medical advice (07) | DRG 872 ==
LOC: E/R 09:39 → PP2 15:47
PROVIDERS: ADMIT Internal Medicine; ATTEND Internal Medicine
DX: A41.9 Sepsis, unspecified organism (principal); K57.20 Diverticulitis of large intestine with perforation and abscess without bleeding; F31.89 Other bipolar disorder; B18.2 Chronic viral hepatitis C; F17.210 Nicotine dependence, cigarettes, uncomplicated; F15.10 Other stimulant abuse, uncomplicated; Z90.49 Acquired absence of other specified parts of digestive tract
CPT/HCPCS: 36415; 74177; 80048; 80053; 80061; 80202; 80307; 81003; 83036; 83605; 83690; 83735; 84100; 85025; 85610; 85651; 85730; 86140; 87081; 96374; 96375; J1170; J2185; J2270; J2405; J2543; J3370; J7030; J7050; Q9967

== ENCOUNTER 2019-04-04 20:33 | Emergency (ER) | payer OTHER ==
[~2019-04-04] VITALS: Ht 160 cm; Wt 71.8 kg
[~2019-04-04 20:33] MED LIST changes: -CEPH-443 PO; -CLON0.5T14 PO; -GLYC30DR OP; -HYDR-3980 PO; -HYDR-4011 PO; +IBUP-1542 PO; +OLAN20TA5 PO; -OLAN5TAB5 PO; +PARO-2 PO; -PARO-37 PO; -RANI150T35 PO; -SULF1TAB31 PO; -TAMS-14 PO
[2019-04-04 20:36] VITALS: BP 126/69; PULSE 57; RESP 18; Ht 160 cm; Wt 71.8 kg
[2019-04-04] MEDS ORDERED: KETOROLAC 30 MG INJ IM STA (20:48)
--- NOTE | 2019-04-04 22:53 | ERD ---
ER Documentation Chief Complaint Chief Complaint RIGHT SHOULD PAIN FROM PREVIOUS INJURY HPI Patient is 49-year-old male presented to ED for right shoulder pain secondary to an injury lifting a heavy box above his head. Patient states he has injured this shoulder before and has a history of dislocation. Patient states he is in extreme pain and rates it a 9 out of 10 and states that moving the arm hurts it. The patient admits to smoking methamphetamines last night. The patient states he has a history of schizoaffective disorder and substance use disorder. The patient is under treatment for his schizoaffective and takes Zyprexa. The patient denies any allergies to medications. ROS All systems reviewed and are negative except as per history of present illness. Medications Home Meds Active Scripts Ibuprofen* (Motrin*) 600 Mg Tab, 600 MG PO Q6, #30 TAB Prov:MEÑO HERBERT PA-C 04/04/19 Acetaminophen* (Tylophen*) 500 Mg Capsule, 2 CAP PO Q8H PRN for PAIN AND OR ELEVATED TEMP, #20 CAP Prov:LEWIS LOPEZ PA-C 11/11/18 Ibuprofen* (Motrin*) 800 Mg Tab, 800 MG PO Q6, #30 TAB Prov:LEWIS LOPEZ PA-C 11/11/18 Reported Medications Paroxetine Hcl* (Paxil*) 20 Mg Tablet, 20 MG PO HS, TAB 01/30/19 Olanzapine (Zyprexa Zydis) 20 Mg Tab.rapdis, 20 MG PO QHS 01/30/19 Allergies Allergies: Coded Allergies: No Known Allergies (Unverified Allergy, Unknown, 01/30/19) PMhx/Soc History of Surgery: Yes (L eye & L shoulder) Anesthesia Reaction: No Hx Neurological Disorder: No Hx Respiratory Disorders: No Hx Cardiac Disorders: No Hx Psychiatric Problems: Yes (Bipolar, Schizophrenia.) Hx Miscellaneous Medical Probl: No Hx Alcohol Use: Yes Hx Substance Use: Yes (METH, Cocaine, Heroine) Hx Tobacco Use: Yes (1 pack daily) Smoking Status: Current every day smoker FmHx Family History: No diabetes, No coronary disease, No other Physical Exam Vitals Vital Signs Date Temp Pulse Resp B/P (MAP) Pulse Ox O2 O2 Flow FiO2 Time Delivery Rate 04/04/19 98.3 57 18 126/69 97 20:36 (88) Physical Exam GENERAL: Moderate Distress CHEST: Clear to auscultation bilaterally. There are no rales, wheezes or rhonchi. HEART: Regular rate and rhythm. No murmurs, clicks, rubs or gallops. EXTREMITIES: mild swelling and deformity to right shoulder with limited range of motion, no signs of open fractures or exposure of soft tissue. No skin pallor noted. Patient has intact gross motor function and distal pulses are present and equal bilaterally. NEUROLOGIC: Motor strength is 5 out of 5 strength in right upper extremity. Sensation grossly intact. Results 24 hrs Current Medications Medications Dose Sig/Stefan Start Time Status Last (Trade) Ordered Route PRN Stop Time Admin Dose Reason Admin Ketorolac 30 mg ONCE STAT 04/04/19 DC 04/04/19 Tromethamine IM 20:48 04/04/19 20:56 (Toradol) 20:51 Procedures/MDM ED course: The patient was stable throughout the ED course. The patient and/or family informed of laboratory and diagnostic imaging results throughout the ED course. Diagnostic imaging: Read by radiologist .Roland Nova PROCEDURE: XR Shoulder. CLINICAL INDICATION: Right shoulder pain. TECHNIQUE: Three views of the right shoulder. COMPARISON: 09/27/2017 FINDINGS: There is no acute fracture or dislocation. An irregular appearance of the distal clavicle is unchanged. The joint spaces are preserved. The visualized right lung is clear. IMPRESSION: No acute fracture or dislocation of the right shoulder. Procedures: SPLINT APPLICATION: The patient was verbally consented at bedside prior to splint application. Patient was explained the risks, benefits and alternatives to this procedure. The patient was neurovascularly intact prior to and status post application of the splint. The patient tolerated the procedure well with no complications. Splint type: Sling Extremity: Right upper extremity Indication: Right shoulder pain I discussed with the patient/family that at anytime if the splint becomes too constricted or if they have loss of sensation, or unable to move any limbs distal to the splint, develop fever, or any discomfort that they should eturn to the ER immdiatly. I educated the patient on risk of compartment syndrome with splint applications. Medications given in ER: Toradol Patient tolerated medication well with no adverse reactions. Patient reported improvement in pain. Medical decision makin-year-old male presented to ED for right shoulder pain secondary to lifting a heavy box over his head. Patient has a history of repetitive injuries to the shoulder and states he did have surgery on it. Patient states the pain is a 9 out of 10. Patient was given Toradol injection for the pain. Patient's arm was placed in sling for comfort. Patient remained neurovascular intact. I palpated the patient's clavicle were no deformities crepitus or contusions were noted. The patient has good pulse motor sensation extremity can wiggle his fingers. The patient only has pain when palpating the right AC joint. At this time the patient has a history of repetitive shoulder injury so I sent the patient for an x-ray which indicated no signs of fracture dislocation.X-ray showed no signs of acute fracture dislocation. The patient is afebrile and denies fever chills night sweats. At this time I have low suspicion for osteomyelitis. The x-ray showed no signs of fracture or deformity or dislocation and patient had no signs of neurovascular deficits on physical exam at this time I have low suspicion for fracture, dislocation, neurovascular injury. Patient was given a Toradol injection for pain and placed in a sling for comfort. Upon reevaluation when I gave the patient the findings in the x-ray the patient appears to be doing much better he is in the waiting room and singing and states he feels much better. Advised the patient that he needs to follow-up with his primary care provider in 1 to 2 days regarding this visit. I advised the patient that if symptoms worsen he should return to ER immediately. Patient is in agreement to the treatment plan and had no further questions upon discharge Prescription for home: Motrin I have discussed with the patient proper use and common side effects to expert with the medication . I advised the patient/family to speak with the pharmacist dispensing the medication to be advised of any potential drug interactions with other medication or supplements they may be taking. Discharge: At this time, patient is stable for discharge and outpatient management. I have instructed the patient to follow-up with his\her primary care physician in 1 to 2 days. I have discussed with the patient the possibility of needing to see a specialist for further work-up and imaging studies if symptoms persist. I have instructed the patient to promptly return to the ER for any new or worsening symptoms including increased pain, fever, nausea, vomiting, weakness or LOC. The patient and\or family expressed understanding of and agreement with this plan. All questions were answered. Home care instructions were provided. Disclaimer: Inadvertent spelling and grammatical errors are likely due to EHR\dictation software use and do not reflect on the overall quality of patient care. Also, please note that the electronic time recorded on the note does not necessarily reflect the actual time of the patient encounter. Departure Diagnosis: Primary Impression: Shoulder pain Chronicity: acute Laterality: right Qualified Codes: M25.511 - Pain in right shoulder Condition: Stable Patient Instructions: Shoulder Pain (Uncertain Cause) Referrals: [facility] YOU HAVE RECEIVED A MEDICAL SCREENING EXAM AND THE RESULTS INDICATE THAT YOU DO NOT HAVE A CONDITION THAT REQUIRES URGENT TREATMENT IN THE EMERGENCY DEPARTMENT. FURTHER EVALUATION AND TREATMENT OF YOUR CONDITION CAN WAIT UNTIL YOU ARE SEEN IN YOUR DOCTORS OFFICE WITHIN THE NEXT 1-2 DAYS. IT IS YOUR RESPONSIBILITY TO MAKE AN APPOINTMENT FOR FOLOW-UP CARE. IF YOU HAVE A PRIMARY DOCTOR --you should call your primary doctor and schedule an appointment IF YOU DO NOT HAVE A PRIMARY DOCTOR YOU CAN CALL OUR PHYSICIAN REFERRAL HOTLINE AT IF YOU CAN NOT AFFORD TO SEE A PHYSICIAN YOU CAN CHOSE FROM THE FOLLOWING [facility] [address] [facility]. [facility] [address] [facility] [facility] [address] [facility] [address] [facility]. [facility] [address] [facility]. [facility]. [address] [facility]. [facility] YOU HAVE RECEIVED A MEDICAL SCREENING EXAM AND THE RESULTS INDICATE THAT YOU DO NOT HAVE A CONDITION THAT REQUIRES URGENT TREATMENT IN THE EMERGENCY DEPARTMENT. FURTHER EVALUATION AND TREATMENT OF YOUR CONDITION CAN WAIT UNTIL YOU ARE SEEN IN YOUR DOCTORS OFFICE WITHIN THE NEXT 1-2 DAYS. IT IS YOUR RESPONSIBILITY TO MAKE AN APPOINTMENT FOR FOLOW-UP CARE. IF YOU HAVE A PRIMARY DOCTOR --you should call your primary doctor and schedule and appointment IF YOU DO NOT HAVE A PRIMARY DOCTOR YOU CAN CALL OUR PHYSICIAN REFERRAL HOTLINE AT . IF YOU CAN NOT AFFORD TO SEE A PHYSICIAN YOU CAN CHOSE FROM THE FOLLOWING [facility]: [facility] [id number] [place] [address] [facility] [address] [place] [address] [facility] [address] [place] [address] [facility] 7 a.m.- 11 p.m. Every Day of the Week NO APPOINTMENT OR AUTHORIZATION NEEDED Additional Instructions: Call your primary care doctor TOMORROW for an appointment during the next 1-2 days.See the doctor sooner or return here if your condition worsens before your appointment time. MEÑO HERBERT PA-C Apr 04, 2019 22:53
== END 2019-04-04 21:59 | disposition home or self-care (01) ==
LOC: FTE 20:33
DX: M25.511 Pain in right shoulder (principal); F17.210 Nicotine dependence, cigarettes, uncomplicated
CPT/HCPCS: 73030; 96372; J1885; Z7502